=== PATIENT | female | born 1960 | race Caucasian/White ===

== ENCOUNTER 2020-03-15 11:32 | Emergency (ER) | payer OTHER, MEDICARE, SELFPAY ==
[2020-03-15 12:05] VITALS: BP 118/76; PULSE 88; RESP 16; TEMP 36.6; O2SAT 98; BMI 36.5
--- NOTE | 2020-03-15 12:30 | CT_ITS ---
EXAMINATION: CT HEAD WITHOUT CONTRAST CLINICAL INFORMATION: Headache and left ear pain COMPARISON: None TECHNIQUE: Contiguous axial imaging was performed from the skull base to vertex without intravenous administration of contrast. This CT examination was performed using dose optimization techniques as appropriate, variously including the following: *Automated exposure control *Adjustment of mA and/or kV according to patient size (this includes techniques or standardized protocols for targeted exams where dose is matched to indication/reason for exam; i.e. extremities or head) *Use of iterative reconstruction technique DLP: 737 mGy-cm FINDINGS: There is no evidence of acute intracranial hemorrhage or territorial infarction. No abnormal mass effect or midline shift is seen. Katz to white matter differentiation is well preserved. No extra-axial fluid collections are identified. The ventricle sulci and cisterns are mildly prominent for age.. There is no abnormal attenuation within the brain parenchyma. The osseous structures and soft tissues are normal. The mastoid air cells and visualized portions of the paranasal sinuses are well aerated. No CP angle lesion identified. CT/CT head/brain wo con IMPRESSION: No acute intracranial pathology.
--- NOTE | 2020-03-15 12:37 | ED.GENADULT ---
HPI - General Adult General Chief complaint: General Medical Stated complaint: ear/neck/back pain Time Seen by Provider: 03/15/20 12:00 Source: patient Mode of arrival: ambulatory Limitations: no limitations History of Present Illness HPI narrative: 59-year-old female who presents the emergency department for evaluation of left year pain x2 months, neck pain with headache x6 weeks and lower back pain. The patient states that she has a constant, sharp, deep pain in her left ear x2 months. She states that she occasionally has a ringing sensation in both ears. She has not noticed any decreased hearing specifically in her left ear but states that her hearing is decreased in both ears. She states that over the past 6 weeks she has had neck pain, she points to her trapezius muscles bilaterally. She states this pain is a constant, sharp pain which is worse with movement and is moderate to severe in intensity. She states the pain does radiate to the back of her head and she has a constant a septal headache which is moderate to severe in intensity. She states that she did see her PCP for the ear pain and was referred to ENT but has not had an appointment yet does follow-up with ENT. She states she saw her dentist yesterday and did not find a cause for her your pain. She states that she is concerned that the pain is persisting and is still severe therefore she called her PCP and was advised to go to the emergency department for evaluation. She denied fever, chills, chest pain, shortness of breath, nausea, vomiting, myalgias or arthralgias. She denies loss of sense of taste or smell. She denies any dental pain or jaw pain. Related Data Previous Rx's Medication Instructions Recorded cyclobenzaprine 10 mg PO TID PRN 7 Days #21 tab 03/15/20 prednisone 60 mg PO DAILY 7 Days #21 tab 03/15/20 Allergies Allergy/AdvReac Type Severity Reaction Status Date / Time doxycycline Allergy Unknown Verified 09/20/19 00:00 simvastatin Allergy Unknown Verified 09/20/19 00:00 No Known Allergies Allergy Unverified 11/10/19 14:52 Review of Systems Review of Systems: Yes all other systems are reviewed and are negative Neurologic: Reports Abnormal speech present PMFSH Past Medical History Medical History Depression High cholesterol HTN (hypertension) Hypothyroid PTSD (post-traumatic stress disorder) Surgical History History of ankle surgery History of dilatation and curettage Hx Last Menstrual Period: The patient denies tobacco use. She occasionally drinks alcohol, she denie Social History Social History Smoked in Last 30 Days: No Use of substances other than those prescribed or required for medical reasons: No Advance Directives: No Advance Directives Information Provided: Yes Physical Exam Vital Signs: Vital Signs: Last Vital Signs Temp 97.8 F 03/15/20 12:05 Pulse 88 03/15/20 12:05 Resp 16 03/15/20 12:05 BP 118/76 03/15/20 12:05 Pulse Ox 98 03/15/20 12:05 Body Mass Index 36.5 Const: General: cooperative Nutritional Appearance: overweight Orientation/consciousness: oriented to person and oriented to place Limitations: no limitations HENMT: Head: Yes normal to inspection, Yes normocephalic and Yes atraumatic Ears: hearing grossly normal bilaterally, external ears normal, TM's normal bilaterally and other (No TMJ tenderness, no sinus tenderness) General nose exam: Normal external nose present Face and sinus: Yes normal facial exam, Yes face symmetric and No Facial tenderness on exam of face and sinuses Mouth: Normal oral and palatal mucosa present Teeth and gingiva: dentition normal Throat: Yes posterior oropharynx normal Eyes: Periorbital: periorbital findings normal Eyelids: Yes eyelids normal Conjunctivae: conjunctivae normal Sclerae: sclerae normal Corneas: corneas normal Pupils: Equal, round and reactive pupils present Direct Ophthalmoscopy: normal light reflex Neck: Neck: Yes full ROM, Yes no lymphadenopathy, Yes no meningeal signs, Yes trachea midline, Yes supple, No anterior neck swelling and Yes tender (Bilateral trapezius and the occipital muscle) Thyroid: Thyroid normal Chest: Chest palpation & inspection: normal inspection of the chest and normal palpation of entire chest wall Resp: Effort & Inspection: normal respiratory effort and able to speak in complete sentences Auscultation: clear to auscultation bilaterally Cardio: Rate: regular rate Rhythm: regular rhythm Heart sounds: S1 normal heart sound present, S2 normal heart sound present and no murmurs GI: Inspection: Yes normal to inspection Palpation (GI): Soft to palpation, nontender, no guarding, not rigid and No hepatosplenomegaly present : General: Yes no CVA tenderness Back/Spine/Pelvis: Back: no CVA tenderness Cervical Spine: normal cervical lordosis Thoracic/Lumbar Spine: thoracic and lumbar spine normal to inspection and paraspinal muscle tenderness (Lumbar sacral area bilaterally) Skin: Lesions: no lesions Rashes: no rashes Wounds: no wounds Neuro: General: oriented to person, oriented to place and no meningeal signs Cranial nerves: Yes CN's II-XII intact bilaterally and Yes Equal, round and reactive pupils present Cognition (Neuro): normal cognition Speech: Abnormal speech present Motor exam (neuro): 5/5 motor strength present throughout Extrem: General: Yes normal to inspection and Yes full ROM Psych: Appearance: well kempt Mental Status: mental status grossly normal Speech and movement: Normal speech and movement present Affect: normal affect Attitude: cooperative Thought process: Normal thought process present Thought content: Normal thought content present Course Course Course Narrative: 59-year-old female who presents emergency department for evaluation of left ear pain x2 months, neck pain and is typical pain x6 weeks and lower back pain. Physical examination revealed no findings of her left ear jaw or face that explains her left ear pain. She does have significant tenderness with palpation of her trapezius muscles and her muscles of the occiputal scalp. Given her persistent headaches for 1 month, I did order a CT scan of the brain without contrast to rule out the possibility of tumor/mass effect is the cause of her symptoms. 1340: The patient's CT scan of the brain was negative. I did discuss this finding with the patient. The patient will be started empirically on a course of prednisone 60 mg once a day for 1 week to see if this improves her symptoms. She will be referred to our ENT physician for further evaluation Discharge Plan Discharge Clinical Impression: Left ear pain Neck sprain Qualifiers: Encounter type: subsequent encounter Qualified Code(s): S13.9XXD - Sprain of joints and ligaments of unspecified parts of neck, subsequent encounter Headache Qualifiers: Headache type: unspecified Headache chronicity pattern: acute headache Intractability: intractable Qualified Code(s): R51.9 - Headache, unspecified Patient Disposition: Home, Self-Care Additional Instructions: I did not see any significant findings on your examination to explain your left ear pain. You should follow-up with our ENT physician with the physician that you referred to by your doctor for further evaluation of your left ear pain. You did have significant tenderness with palpation of your neck muscles and I believe that your neck pain and headaches are related to muscle pain and spasm of these muscles Take prednisone 60 mg once a day for 1 week. This is a strong anti-inflammatory medication and hopefully this will improve the pain in your neck and in your ear. Take Flexeril (cyclobenzaprine) 10 mg pills, 1 pill 3 times a day for 1 week as needed for pain and spasm of your neck. This medication will make you sleepy. Follow-up with your doctor in 2 days. Please return to the emergency department if your symptoms get worse or if you develop any symptoms that are concerning to you. Prescriptions: New prednisone 20 mg tablet 60 mg PO DAILY 7 Days Qty: 21 RF: 0 cyclobenzaprine 10 mg tablet 10 mg PO TID PRN (Reason: muscle spasm) 7 Days Qty: 21 RF: 0 Referrals: Juan Antonio Encinas [Physician] - 1 week
== END 2020-03-15 14:00 | disposition home or self-care (01) ==
PROVIDERS: Emergency Provider Emergency Medicine Emergency Medical Services; PCP Family Medicine
DX: S13.9XXA Sprain of joints and ligaments of unspecified parts of neck, initial encounter (principal); H92.02 Otalgia, left ear; R51.9 Headache, unspecified; M54.2 Cervicalgia; I10 Essential (primary) hypertension; X58.XXXA Exposure to other specified factors, initial encounter; Y93.9 Activity, unspecified; Y92.9 Unspecified place or not applicable; Y99.9 Unspecified external cause status; Z79.899 Other long term (current) drug therapy
CPT/HCPCS: 70450; 99283; 99284

== ENCOUNTER 2022-02-24 08:39 | Emergency (ER) | payer OTHER, SELFPAY ==
--- NOTE | ~2022-02-24 | XR_ITS ---
EXAMINATION: XR CHEST CLINICAL INFORMATION: Productive cough COMPARISON: None TECHNIQUE: 2 views of the chest were obtained. FINDINGS: No significant abnormality is noted involving the heart, lungs, mediastinum, bony thorax or soft tissues. XR/XR chest 2V IMPRESSION: No acute disease.
[2022-02-24 08:41] VITALS: BP 187/89; PULSE 84; RESP 18; TEMP 36.7; O2SAT 97; BMI 42.3
--- NOTE | 2022-02-24 09:26 | ED_ITS ---
HPI - URI/Sore Throat General Chief Complaint: Upper Respiratory Symptoms Stated Complaint: ear infection Time Seen by Provider: 02/24/22 08:53 Source: patient Mode of arrival: ambulatory Limitations: no limitations History of Present Illness HPI Narrative: Patient is a 61-year-old female who presents to the emergency department with multiple upper respiratory complaints. She reports a cough with nasal congest ion for 1 month. About 1 week ago her symptoms seem to have been improving but then became worse again. Phlegm is yellow /wound. Has left-sided sinus pressure. Yesterday she began noting redness to the left eye off with clear drainage. Additionally she began experiencing right ear pain yesterday. This to go home COVID- 19 test which was negative. She reports that she was seen by her primary care provider 2 weeks ago, was not provided with any prescription medications at that time by her account. She denies fevers, chills, sore throat, chest pain, shortness of breath, difficulty breathing, nausea, vomiting, abdominal pain. Reports she has been vaccinated for COVID - 19 x 4. Related Data Previous Rx's Medication Instructions Recorded cyclobenzaprine 10 mg tablet 10 mg PO TID PRN muscle spasm 7 03/15/20 days #21 tabs prednisone 20 mg tablet 60 mg PO DAILY 7 days #21 tabs 03/15/20 amoxicillin 875 mg-potassium 1 tab PO BID #14 tabs 02/24/22 clavulanate 125 mg tablet Allergies Allergy/AdvReac Type Severity Reaction Status Date / Time doxycycline Allergy Unknown Verified 09/20/19 00:00 simvastatin Allergy Unknown Verified 09/20/19 00:00 No Known Allergies Allergy Unverified 11/10/19 14:52 Review of Systems Review of Systems: Constitutional: No fever. no chills. No weakness. no fatigue. ENT/ Mouth: positive Ear Pain, positive Nasal Congestion, no sore throat, No Rhinorrhea, No Swallowing Difficulty Skin: No rash or itching. Cardiovascular: No chest pain. No palpitations. Respiratory: No shortness of breath. Positive cough. positive sputum production. Gastrointestinal: No nausea. No vomiting. No diarrhea. No abdominal pain. Genitourinary: No burning micturition. No urinary frequency. Neurologic: No headache. No dizziness. No syncope. No numbness or tingling in the extremities. Musculoskeletal: No muscle pain. No back pain. No joint pain or stiffness. Yes all other systems are reviewed and are negative [facility] Past Medical History Attestation statement: The following information was validated with the patient. Source: old records reviewed Medical History Depression High cholesterol HTN (hypertension) Hypothyroid PTSD (post-traumatic stress disorder) Surgical History History of ankle surgery History of dilatation and curettage Social History Social History Alcohol intake: never Smoked in Last 30 Days: No Use of substances other than those prescribed or required for medical reasons: No Advance Directives: No Advance Directives Information Provided: No Physical Exam Vital Signs: Vital Signs: Last Vital Signs Temp 98.1 F 02/24/22 08:41 Pulse 84 02/24/22 08:41 Resp 18 02/24/22 08:41 BP 187/89 H 02/24/22 08:41 Pulse Ox 97 02/24/22 08:41 O2 Del Method 02/24/22 08:41 BMI result Body Mass Index 42.3 Appearance: Alert.?Oriented to person, place and time. No acute distress.?Normal affect. Eyes: Pupils equal, round and reactive to light.? left conjunctival erythema, clear drainage. ENT: TM Normal on the left, right TM erythematous and bulging. Pharynx normal.?? Left maxillary sinus tenderness upon palpation. Neck: Normal inspection.? Neck supple. Full AROM. no nucha rigidity.??No cervical adenopathy CVS: Heart sounds normal. Normal heart rate and rhythm.? Pulses normal.?? Respiratory: No respiratory distress.? Lung sounds clear to auscultation bilaterally?? Abdomen: Soft and non-tender. Normoactive bowel sounds. Skin: Skin warm and dry.? Normal skin color.? ? Extremities: No lower extremity edema.? Neuro: Moves all extremities spontaneously. Sensation intact bilaterally. No motor deficits. Ambulates with normal steady gait. Course Reevaluation(s) Reevaluation #1: COVID-19 testing is negative. Influenza testing Is negative. chest x-ray reveals no acute cardiopulmonary process. At this time history and physical exam not consistent with pneumonia. symptoms most consistent with acute otitis media of the right, and left frontal maxillary sinusitis, will cover with Augmentin for treatment of both. Discussed conservative treatment including rest, hydration, Tylenol/ibuprofen as needed for fever and body aches, saline nasal spray, humidifier. Advised to follow-up with primary care provider as needed, discussed reasons to return back to the emergency department. All questions were answered. Patient discharged home in stable condition. Time: 11:02 Medical Decision Making Medical Decision Making [facility] Narrative: Patient is a 61-year-old female with past medical history of depression, PTSD, hyperlipidemia, hypertension, hypothyroidism, presenting for evaluation of upper respiratory symptoms. Well-appearing, nontoxic, afebrile, no tachycardia or tachypnea/hypoxia. Speaking clear full sentences, ambulatory with steady gait. physical examination concerning for acute otitis media of the right ear, history and physical examination also concerning for sinusitis, given duration of symptoms, appears most consistent with its bacterial nature at this time. However given some resolution in symptoms and then return after exposure to ill contact will obtain COVID- 19 and influenza testing in addition a chest x-ray to exclude pneumonia. Lab Data [facility] Lab Attestation statement: I reviewed the patient's lab results. Labs: Lab Results 02/24/22 02/24/22 Range/Units 09:44 09:44 COVID-19 (NASRA) Negative (Negative) COVID-19 Clin Com See Note Influenza Type A (ANAM) Negative (Negative) Influenza Type B (ANAM) Negative (Negative) Influenza A & B Note See Note Independent Interpretation I performed an independent interpretation of an: Plain X-Ray Interpretation: I personally interpreted chest x-ray and agree with radiologist impression Radiology Impression Discussion of test interpretation with radiology: I have reviewed the radiologist's reading. Radiologist Impression: XR/XR chest 2V IMPRESSION: No acute disease. Prescription Management I considered prescription management with: Antibiotic ( Prescription for Augmentin sent to patient's pharmacy.) Discharge Plan Discharge Clinical Impression: Acute otitis media Qualifiers: Laterality: right Recurrence: non-recurrent Spontaneous tympanic membrane rupture: without spontaneous rupture Sinusitis Qualifiers: Sinusitis location: maxillary Chronicity: acute Recurrence: non-recurrent Qualified Code(s): J01.00 - Acute maxillary sinusitis, unspecified Patient Disposition: Home, Self-Care Instructions: Sinusitis (ED), Ear Infection (ED) Additional Instructions: your chest x-ray today was normal. Testing for COVID- 19 and influenza are negative. A prescription for Augmentin was sent to your pharmacy for the treatment of right ear infection and sinus infection please complete this entire course of antibiotic. Be sure to rest, drink plenty of fluids, use saline nasal spray / humidifier for congestion, Tylenol as needed for pain. Follow-up with your primary care provider for persistent symptoms. Return to the emergency department with any new or worsening symptoms or concerns. Prescriptions: New amoxicillin-pot clavulanate 875-125 mg tablet 1 tab PO BID Qty: 14 0RF No Action prednisone 20 mg tablet 60 mg PO DAILY 7 Days Qty: 21 0RF cyclobenzaprine 10 mg tablet 10 mg PO TID PRN (Reason: muscle spasm) 7 Days Qty: 21 0RF Referrals: Carla Clay MD [Primary Care Provider] - Interventions: ED Discharge Assessment Last Done: 02/24/22 11:31
[2022-02-24 10:09] LABS: COVID-19 Test Negative (Negative); IDNOW Serial# 16C4AD1C
[2022-02-24 10:10] LABS: IDNOW Serial# BCCEAD1C; Influenza A Negative (Negative); Influenza B2 Negative (Negative)
== END 2022-02-24 11:33 | disposition home or self-care (01) ==
PROVIDERS: Nurse Practitioner Family; Emergency Provider Student in an Organized Health Care Education/Training Program; PCP Family Medicine
DX: H66.91 Otitis media, unspecified, right ear (principal); J01.00 Acute maxillary sinusitis, unspecified; Z20.822 Contact with and (suspected) exposure to COVID-19; I10 Essential (primary) hypertension; E78.5 Hyperlipidemia, unspecified
CPT/HCPCS: 71046; 87502; 87635; 99283

== ENCOUNTER 2023-01-19 14:58 | Emergency (ER) | payer OTHER, SELFPAY ==
--- NOTE | ~2023-01-19 | XR_ITS ---
EXAMINATION: XR WRIST, LEFT XR HAND, LEFT CLINICAL INFORMATION: Fall, pain. COMPARISON: None available. TECHNIQUE: 3 views of the left hand and 4 views of the left wrist. FINDINGS: No evidence of acute fractures or subluxation. Mild multifocal degenerative osteoarthritis with joint space narrowing, subcortical sclerosis and small marginal osteophytes. No osseous erosions. No chondrocalcinosis. No unexpected radiopaque foreign bodies. XR/XR hand wrist LT IMPRESSION: 1. No acute fractures or malalignment. 2. Mild multifocal degenerative osteoarthritis.
--- NOTE | 2023-01-19 15:18 | ED_ITS ---
HPI - URI/Sore Throat General Chief Complaint: Extremity Injury, Upper Stated Complaint: possible broken L hand Time Seen by Provider: 01/19/23 17:19 Source: patient Mode of arrival: ambulatory Limitations: no limitations History of Present Illness HPI Narrative: This is a 62-year-old female history of hypertension, hyperlipidemia, diabetes, hypothyroidism, PTSD, depression presenting to the emergency department with left-sided wrist pain status post fall onto an outstretched hand and also hitting the lateral aspect of it yesterday while playing tennis. When she fell she did not hit her head or lose consciousness. Not on anticoagulants. She is ambidextrous. She reports pain that is worse with movement better at rest. Also noted some swelling to the left wrist. No previous injuries to this wrist. Denies fevers, chills, numbness, tingling, headache, vision changes, chest pain, shortness of breath, nausea, vomiting, abdominal pain. Related Data Previous Rx's Medication Instructions Recorded cyclobenzaprine 10 mg tablet 10 mg PO TID PRN muscle spasm 7 03/15/20 days #21 tabs prednisone 20 mg tablet 60 mg (3 x 20 mg) PO DAILY 7 days 03/15/20 #21 tabs amoxicillin 875 mg-potassium 1 tab PO BID #14 tabs 02/24/22 clavulanate 125 mg tablet ketorolac 10 mg tablet 10 mg PO TID PRN pain 5 days #15 01/19/23 tabs Allergies Allergy/AdvReac Type Severity Reaction Status Date / Time doxycycline Allergy Unknown Verified 09/20/19 00:00 simvastatin Allergy Unknown Verified 09/20/19 00:00 No Known Allergies Allergy Unverified 11/10/19 14:52 Review of Systems Review of Systems: Constitutional : No Weight loss, No Fever, No Chills, No Fatigue, No Malaise ENT/Mouth : No sore throat, No Rhinorrhea Eyes: No Eye Pain, No Swelling, No Redness Cardiovascular : No Chest Pain, No SOB, No Dyspnea on Exertion, No Orthopnea, No Edema, No Palpitations Respiratory : No Cough, No Sputum, No Wheezing Gastrointestinal : No Nausea, No Vomiting, No Diarrhea, No Constipation, No abdominal Pain, No Hematochezia, No Melena Genitourinary : No Dysuria, No Urinary Frequency, No Hematuria, Musculoskeletal : + joint pain, No Myalgias, + Joint Swelling Skin : No Skin Lesions, No rash Neuro : No Weakness, No Numbness, No Dizziness, No Headache Psych : No Anxiety/Panic, No Depression All other systems reviewed and are negative Yes all other systems are reviewed and are negative [facility] Past Medical History Attestation statement: The following information was validated with the patient. Source: old records reviewed and nursing notes reviewed Medical History Hypothyroid PTSD (post-traumatic stress disorder) Depression High cholesterol HTN (hypertension) Surgical History History of ankle surgery History of dilatation and curettage Social History Alcohol intake: never Physical Exam Vital Signs: Vital Signs: Last Vital Signs Temp 96.8 F 01/19/23 15:19 Pulse 78 01/19/23 15:19 Resp 18 01/19/23 15:19 BP 146/65 H 01/19/23 15:19 Pulse Ox 99 01/19/23 15:19 O2 Del Method Room Air 01/19/23 15:19 BMI result Body Mass Index 43.9 vss Appearance: Alert.? Oriented X3.? No acute distress.? Head: Normocephalic, atraumatic, no step-offs or deformities Eyes: Pupils equal, round and reactive to light.? CVS:Pulses normal.? Respiratory: No respiratory distress. Abdomen: Soft and nontender.? Skin: Skin warm and dry.? Normal skin color.? Normal skin turgor.? Extremities: No lower extremity edema.? No calf ttp. 5/5 strength to bilateral upper and lower extremities + swelling to the left wrist in slightly uncomfortable range of motion to left wrist however still has full range of motion. Normal sensation distally. 2+ radial pulses equal bilateral. No wrist drop. Capillary refill less than 2 seconds equal bilateral. No discomfort with palpation over anatomical snuffbox. Slight ecchymosis to the dorsal aspect of left hand. Neuro: Oriented X 3.? No motor deficit.? No sensory deficit. CN 2-12 intact Course Course Course Narrative: This is a rapid medical exam. Deferred additional HPI, ROS, PE to primary provider. 62 yo female with history of HTN, HLD, DM, hypothyroidism, PTSD, depression who is ambidextrous here with complaints of left wrist pain after fall while playing tennis yesterday Denies hitting head or LOC. No AC therapy Will obtain x-rays of the wrist/hand VSS Reevaluation(s) Reevaluation #1: X-ray no acute fracture dislocation, mild multifocal degenerative osteoarthritis will place and wrist splint. Educated follow-up with Ortho if needed and may need repeat films to rule out fracture. Educated patient on diagnosis and treatment plan, answered all question, patient verbalizes understanding. At this time patient will be discharged home, advised to return with new or worsening symptoms. Educated on worrisome signs and symptoms and when to return. At this time I feel comfortable discharge home. Time: 17:23 Medical Decision Making Medical Decision Making [facility] Narrative: [id number] 62-year-old female presents with a left hand/wrist pain status post FOOSH/ landing on the lateral aspect of hand unclear Physical exam with swelling to the left wrist in slightly uncomfortable range of motion to left wrist however still has full range of motion. Normal sensation distally. 2+ radial pulses equal bilateral. No wrist drop. Capillary refill less than 2 seconds equal bilateral. No discomfort with palpation over anatomical snuffbox Slight ecchymosis to the dorsal aspect of left hand. History and physical exam concerning for possible fracture/dislocation versus sprain or strain. No signs of neurovascular compromise or threat to [place]. Plan imaging Differential Diagnosis Differential Diagnoses: The differential diagnosis associated with the presentation includes History and physical exam concerning for possible fracture/dislocation versus sprain or strain. No signs of neurovascular compromise or threat to [place]. Admission/Observation Consideration of admission/observation: Escalation of care including admission/observation considered Unlikely Independent Interpretation I performed an independent interpretation of an: Plain X-Ray (XR/XR hand wrist LT IMPRESSION: 1. No acute fractures or malalignment. 2. Mild multifocal degenerative osteoarthritis. ) Radiology Impression Discussion of test interpretation with radiology: I have reviewed the radiologist's reading. Prescription Management I considered prescription management with: Pain Medication Discharge Plan Discharge Clinical Impression: Sprain and strain of wrist Patient Disposition: Home, Self-Care Instructions: Sprain (ED), R.I.C.E. Treatment (ED), Wrist Sprain (ED) Additional Instructions: Take your medications as prescribed. If you were prescribed antibiotics today, it is important that you take your medication to their entirety, do not skip any doses, do not finish them early. Follow-up with your primary care provider this week. Return to the emergency department with new or worsening symptoms. Such as fevers, chills, chest pain, shortness of breath, nausea, vomiting, dizziness, headache, vision changes, lethargy In case of emergency call 911 Follow-up with the orthopedic team. If pain persists you may require repeat films. Toradol has been sent to your pharmacy, you tolerated this well in the department. Please take this as prescribed do not take this with ibuprofen, or other NSAIDs, do not mix this with alcohol. Side effects of this medication including increased risk for bleeding and possible kidney injury. XR/XR hand wrist LT IMPRESSION: 1. No acute fractures or malalignment. 2. Mild multifocal degenerative osteoarthritis. Prescriptions: New ketorolac 10 mg tablet 10 mg PO TID PRN (Reason: pain) 5 Days Qty: 15 0RF No Action prednisone 20 mg tablet 60 mg PO DAILY 7 Days Qty: 21 0RF cyclobenzaprine 10 mg tablet 10 mg PO TID PRN (Reason: muscle spasm) 7 Days Qty: 21 0RF amoxicillin-pot clavulanate 875-125 mg tablet 1 tab PO BID Qty: 14 0RF Referrals: [facility] [Provider Group] - 2 days Stand Alone Forms: Work/School Release
[2023-01-19 15:19] VITALS: BP 146/65; PULSE 78; RESP 18; TEMP 36; O2SAT 99; BMI 43.9
[2023-01-19] MEDS: Ketorolac Tromethamine 30 MG/ML VIAL IM (17:40)
== END 2023-01-19 18:52 | disposition home or self-care (01) ==
LOC: HO.ED 18:49
PROVIDERS: Emergency Provider Emergency Medicine
DX: S63.502A Unspecified sprain of left wrist, initial encounter (principal); S66.912A Strain of unspecified muscle, fascia and tendon at wrist and hand level, left hand, initial encounter; X50.1XXA Overexertion from prolonged static or awkward postures, initial encounter; E78.5 Hyperlipidemia, unspecified; I10 Essential (primary) hypertension; Y93.73 Activity, racquet and hand sports; Y92.312 Tennis court as the place of occurrence of the external cause; Y99.9 Unspecified external cause status
CPT/HCPCS: 73110; 73130; 96372; 99283; 99284; J1885

== ENCOUNTER 2023-04-03 08:24 | Outpatient (REF) | payer MEDICARE, SELFPAY ==
[2023-04-03 12:47] LABS: Estimated Average Glucose 154 mg/dL; Glucose Random 181 mg/dL (60-115)
== END 2023-04-03 08:25 | disposition home or self-care (01) ==
LOC: HO.LAB 08:24
PROVIDERS: Visit Provider Physician Assistant Surgical
DX: E66.01 Morbid (severe) obesity due to excess calories (principal); E11.9 Type 2 diabetes mellitus without complications; F32.A Depression, unspecified; F43.10 Post-traumatic stress disorder, unspecified; Z79.84 Long term (current) use of oral hypoglycemic drugs; Z79.899 Other long term (current) drug therapy
CPT/HCPCS: 36415; 82947; 83036; 99453

== ENCOUNTER 2023-04-03 11:52 | Outpatient (AMB) | payer OTHER, SELFPAY ==
--- NOTE | 2023-04-03 12:42 | HO.OFFWMMET ---
Intake VS Expanded 04/03/23 12:54 BP 120/71 Blood Pressure Location Rt brachial Blood Pressure Position Sitting Pulse 85 Pulse Source Pulse Oximeter Temp 97.6 F Temperature Source Temporal Artery Scan Pulse Oximetry 98 Oxygen Delivery Method Room Air Height 5 ft 7 in Weight 259 lb 9.6 oz BMI 40.7 Body Fat % 47.6 Body Fat Mass 123.4 Fat Free Mass 136.0 Visceral Fat Rating 16.0 Body Water % 37.1 Body Water Mass 96.4 Muscle Mass/Score 129.2 Intake Visit Reasons: metabolic clinic Hearing Stenographer Required: No Allergies doxycycline Allergy (Unknown, Verified 09/20/19 00:00) simvastatin Allergy (Unknown, Verified 09/20/19 00:00) No Known Allergies Allergy (Unverified 11/10/19 14:52) Medication List - Last Reconciled 04/03/23 by KEL Munoz amoxicillin-pot clavulanate 875-125 mg 1 tab PO BID levothyroxine (Synthroid) 88 mcg PO DAILY lisinopril 20 mg PO DAILY metformin 500 mg PO BID modafinil 300 mg PO DAILY semaglutide (Ozempic) 0.25 mg subcut QWEEK HPI HPI Comments History of Present Illness Details Patient is a pleasant 62-year-old female who presents to the office for the metabolic clinic. She has been concerned about her weight for many years, recently diagnosed with diabetes and started on metformin 500 mg twice daily. Contributing factors to her obesity include depression with PTSD. She is hoping to lose weight, improve dietary habits, improve mobility and exercise tolerance. She does have a glucometer at home. [facility] Medical History Hypothyroid PTSD (post-traumatic stress disorder) Depression High cholesterol HTN (hypertension) Surgical History History of ankle surgery History of dilatation and curettage Social History Alcohol intake: current Alcohol intake frequency: holidays/special occasions only Alcohol type: wine Patient Tobacco Use Status: Never used Tobacco Review of Systems Const All systems reviewed & are unremarkable except as noted in HPI and below Physical Exam Vital Signs: Last Vital Signs Temp 97.6 F 04/03/23 12:54 Pulse 85 04/03/23 12:54 BP 120/71 04/03/23 12:54 Pulse Ox 98 04/03/23 12:54 Oxygen Delivery Method Room Air 04/03/23 12:54 BMI result Body Mass Index 40.7 Assessment & Plan Assessment & Plan (1) Morbid obesity: Code(s): E66.01 - Morbid (severe) obesity due to excess calories Plan: Patient has been seen in the metabolic clinic. She has been given a meal plan although she states that she has some protein powder at home but was unable to remember what it was. She has an unusual sleep-wake cycle, going to bed around midnight and awakening around noon. Meal plan: Celebrate rebuild 2 scoops in 20 oz of almond milk, 13:00 to 15:00 9 forks of protein and 9 forks of salad or vegetables at 16:00 to 18:00 Celebrate protein bar 20:00 14:10. Attempt to drink 64 oz of water. She was also given an exercise plan. She has a treadmill and elliptical at home as well as an E bike which she enjoys. She additionally enjoys tennis. Hemoglobin A1c 7. Orders: Orders Hemoglobin A1c Today E66.9 - Obesity, unspecified Glucose Random Today E66.9 - Obesity, unspecified Coding Level of Care Code 115[address] [facility] Intital [facility], [facility] Diagnoses Morbid obesity E66.01
[2023-04-03 12:54] VITALS: BP 120/71; PULSE 85; TEMP 36.4; O2SAT 98; BMI 40.7
== END 2023-04-03 14:39 | disposition home or self-care (01) ==
LOC: HO.META 11:52
PROVIDERS: Visit Provider Physician Assistant Surgical
DX: E66.01 Morbid (severe) obesity due to excess calories (principal)

== ENCOUNTER → 2023-04-10 12:03 | Outpatient (BNVA) | payer MEDICARE, SELFPAY | PROVIDERS: Visit Provider Physician Assistant Surgical ==

== ENCOUNTER 2023-05-01 14:32 | Outpatient (AMB) | payer MEDICARE, SELFPAY ==
[2023-05-01 13:43] VITALS: BMI 40.0
--- NOTE | 2023-05-01 13:43 | A.OFFVIS_ITS ---
Intake VS Expanded 05/01/23 13:43 Height 5 ft 7 in Weight 255 lb 8 oz BMI 40.0 Body Fat % 54.2 Intake Visit Reasons: (tV) METABOLIC F/U Allergies doxycycline Allergy (Unknown, Verified 04/10/23 12:05) Unknown simvastatin Allergy (Unknown, Verified 04/10/23 12:05) Unknown No Known Allergies Allergy (Verified 04/10/23 12:05) HPI HPI Comments History of Present Illness Details 62-year-old female returns to the [facility]. She reports her weight today of 255.8 with a BMI of 40. She states that things are going ok. She is not following the meal plans. She feels as though it is too hard. She states she is sleeping too much. She continues with increased depressive symptoms and she discussed this with her therapist to possibly try Ketamine. She was also recommended to try to follow a sleep schedule but has trouble falling asleep, taking 15 mg melatonin. getting into bed at 2 am, taking melatonin at 230 am. waking up at noon but not getting out of bed until 4 pm meal plan: equate isolate, 1 scoop in 10 oz of unsweetened almond milk at 1-3pm, meal at 4pm with 9 forks of protein and 9 of salad or vegetables, celebrate bar at 8pm. . Drinking 80 oz fluids exercise: tennis 1 x per week. nothing else. [facility] Medical History Hypothyroid PTSD (post-traumatic stress disorder) Depression High cholesterol HTN (hypertension) Surgical History History of ankle surgery History of dilatation and curettage Social History Alcohol intake: current Alcohol intake frequency: holidays/special occasions only Alcohol type: wine Patient Tobacco Use Status: Never used Tobacco Assessment & Plan Assessment & Plan (1) Morbid obesity: Code(s): E66.01 - Morbid (severe) obesity due to excess calories Plan: Patient has significant depression is prohibiting her from engaging in the meal plan or exercise plan. She states that she will frequently stay in bed until 4 in the afternoon. She states that she is going to discuss the significant negative impact of her depression on her life overall with her behavioral health specialist whom she says she has an appointment with on Thursday. I will text her weekly to see how she is doing and once her depressive symptoms improve, we will continue to engage and change her meal plan as she loses weight. She is in agreement with this plan. Telehealth Telehealth Location of provider rendering services: practice address Location of patient: address on file Patient Identification confirmed using: Name, : Yes Telehealth method: voice only Patient verbally consented to treatment: Yes Patient verbally consented to billing insurance company: Yes Patient informed of any privacy concerns related to visit: Yes Minutes spent on Phone/Video with Pt.: 20 Coding Level of Care Code 04324 RPM rcrd/trans ea 30 d Diagnoses Morbid obesity E66.01
== END 2023-05-01 14:34 | disposition home or self-care (01) ==
LOC: HO.META 14:33
PROVIDERS: Visit Provider Physician Assistant Surgical
DX: E66.01 Morbid (severe) obesity due to excess calories (principal)

== ENCOUNTER → 2023-05-01 14:32 | Outpatient (BNVA) | payer MEDICARE, SELFPAY | PROVIDERS: Visit Provider Physician Assistant Surgical | DX: E66.01 Morbid (severe) obesity due to excess calories (principal); Z68.41 Body mass index [BMI] 40.0-44.9, adult | CPT/HCPCS: 99454 ==

== ENCOUNTER 2023-11-23 07:33 | Emergency (ER) | payer OTHER, SELFPAY ==
--- NOTE | ~2023-11-23 | CT_ITS ---
EXAMINATION: CT HEAD WITHOUT CONTRAST CLINICAL INFORMATION: Syncope, mechanical fall with head injury COMPARISON: CT scan of brain on 03/15/2020 TECHNIQUE: Contiguous axial imaging was performed from the skull base to vertex without intravenous administration of contrast. This CT examination was performed using dose optimization techniques as appropriate, variously including the following: *Automated exposure control *Adjustment of mA and/or kV according to patient size (this includes techniques or standardized protocols for targeted exams where dose is matched to indication/reason for exam; i.e. extremities or head) *Use of iterative reconstruction technique DLP: 746.14 mGy-cm FINDINGS: Ventricles, sulci and cisterns are dilated, with mild disproportional ventriculomegaly. The right lower frontal parafalcine densely calcified mass lesion is seen measuring 1.0 cm in AP diameter, 0.7 cm in width, 1.5 cm in vertical height (previously 0.8 x 0.7 cm). A rounded focal high attenuation is seen at the medial border of left upper lateral frontal gyrus measuring 0.3 cm in diameter, associated with linear high attenuation in the rest of the frontal gyrus, series 3 image #53, series 9 image #101, series 14 image #40. There is no midline shift. Katz and white matter differentiation is normal. Bone window images show no evidence of skull fracture. CT/CT head/brain wo IV con IMPRESSION: 1. Findings are compatible with tiny focal and linear acute subarachnoid hemorrhage at the left upper lateral frontal gyrus. 2. Unchanged Mild cerebral atrophy with mild disproportional ventriculomegaly. 3. Unchanged Right lower frontal parafalcine densely calcified mass lesion, likely a meningioma. 4. This critical result was discussed with Dr. Royal Ceballos on 11/23/2023 at 947 hours and it was ascertained that the content and urgency of this report was understood at the time of direct communication. Electronically signed by: Kiya Thomson MD 11/23/2023 09:48 AM EDT
--- NOTE | ~2023-11-23 | CT_ITS ---
EXAMINATION: CT ABDOMEN AND PELVIS WITHOUT CONTRAST CLINICAL INFORMATION: Abdominal pain. Rule out colitis. COMPARISON: None available. TECHNIQUE: Multidetector volumetric imaging was performed from the superior aspect of the liver through the pubic symphysis. Sagittal and coronal reformatted images were obtained on the technologist's workstation. This CT examination was performed using dose optimization techniques as appropriate, variously including the following: *Automated exposure control *Adjustment of mA and/or kV according to patient size (this includes techniques or standardized protocols for targeted exams where dose is matched to indication/reason for exam; i.e. extremities or head) *Use of iterative reconstruction technique DLP: 890 mGy-cm FINDINGS: LUNG BASES: The lung bases appear clear, with no evidence of inflammation or nodules. LIVER, GALLBLADDER, AND BILIARY TREE: The liver appears unremarkable in size, shape, and attenuation. No focal hepatic lesion or biliary ductal dilatation is appreciated. Innumerable, layering, approximately 1.4 cm or less gallstones. No evidence of gallbladder wall thickening or pericholecystic inflammatory change. PANCREAS: Unremarkable SPLEEN: Unremarkable ADRENAL GLANDS: Unremarkable KIDNEYS AND URETERS: The kidneys appear unremarkable in size, shape, and attenuation. No hydronephrosis, hydroureter, or calculi seen. BLADDER: Unremarkable GASTROINTESTINAL TRACT/PERITONEAL CAVITY: Long segment, concentric thickening involving the ascending colon, hepatic flexure, and proximal transverse colon, with induration of adjacent fat. Small amount of free intraperitoneal fluid. No evidence of abscess or pneumoperitoneum. Unremarkable appearance of the distal ileum. No evidence of appendicitis. ABDOMINAL WALL: No significant hernia is appreciated. LYMPH NODES: No evidence of adenopathy by size criteria. VASCULAR: Unremarkable PELVIC VISCERA: Unremarkable. OSSEOUS STRUCTURES: Degenerative changes at L4-S1. Status post right hip arthroplasty. CT/CT abdomen pelvis wo IV con IMPRESSION: Long segment, concentric thickening involving the ascending colon, hepatic flexure, and proximal transverse colon, with induration of adjacent fat. Differential diagnosis includes, but is not limited to, colitis. Electronically signed by: Arley Montoya MD 11/23/2023 09:36 AM EDT
[2023-11-23 07:43] VITALS: BP 110/65; BP 118/72; PULSE 100; PULSE 84; RESP 20; TEMP 37.2; O2SAT 95; O2SAT 97; BMI 38.4
[2023-11-23] MEDS: 0.9 % Sodium Chloride 1,000 ML 999 ML IV (07:57)
--- NOTE | 2023-11-23 07:57 | ED.GENADULT ---
HPI - General Adult General Chief complaint: General Medical Stated complaint: ABD PAIN,WEAK,NAUSEA X2D S/P RETURN FROM [place] Time Seen by Provider: 11/23/23 07:51 Source: patient and EMS Mode of arrival: EMS Limitations: no limitations History of Present Illness ED Provider: DR. Ceballos HPI narrative: 63-year-old female came in by ambulance for persistent diarrhea for 2 days described as constant nonbloody watery diarrhea, patient just returned from [place] trip, no sick contacts, patient also recently used amoxicillin for tooth infection finish the course 3 days ago, patient been having a constant diarrhea feeling weak and dizzy, had sustained mechanical falls because of weakness causing head injury this morning. Had a fever yesterday of 102. No CP, no SOB. this morning patient was feeling lightheadedness and dizziness as a result patient fell in the bathroom hit her head complaining of mild headache. Patient declined using any anticoagulation at home. Related Data Home Medications ?Medication ?Instructions ?Recorded ?Confirmed levothyroxine 88 mcg tablet 88 mcg PO DAILY 04/03/23 04/17/23 (Synthroid) lisinopril 20 mg tablet 20 mg PO DAILY 04/03/23 04/17/23 metformin 500 mg tablet 500 mg PO BID 04/03/23 04/17/23 modafinil 200 mg tablet 300 mg PO DAILY 04/03/23 04/17/23 semaglutide 0.25 mg or 0.5 mg (2 0.25 mg subcut QWEEK 04/03/23 04/17/23 mg/3 mL) subcutaneous pen injector (Ozempic) bupropion HCl 150 mg 24 hr tablet, 150 mg PO QAM 04/17/23 04/17/23 extended release (Wellbutrin XL) duloxetine 60 mg capsule,delayed 60 mg PO BID 04/17/23 04/17/23 release (Cymbalta) Previous Rx's ?Medication ?Instructions ?Recorded amoxicillin 875 mg-potassium 1 tab PO BID #14 tabs 02/24/22 clavulanate 125 mg tablet Allergies Allergy/AdvReac Type Severity Reaction Status Date / Time doxycycline Allergy Unknown Unknown Verified 11/23/23 07:48 simvastatin Allergy Unknown Unknown Verified 11/23/23 07:48 No Known Allergies Allergy Verified 11/23/23 07:48 Review of Systems Review of Systems: all other systems are reviewed and are negative Constitutional: Reports as per HPI and Reports no additional constitutional complaints Eyes: Reports as per HPI and Reports no additional eye complaints Reports system reviewed and no additional complaints, except as documented Cardiovascular: Reports as per HPI and Reports no additional cardiovascular complaints Respiratory: Reports as per HPI and Reports no additional respiratory complaints Gastrointestinal: Reports as per HPI and Reports no additional gastrointestinal complaints Genitourinary: Reports no additional female genitourinary complaints Musculoskeletal: Reports no additional musculoskeletal complaints Skin/Breast: Reports system reviewed and no additional complaints, except as docu Psychiatric: Reports no additional psychiatric complaints Endocrine: Reports no additional endocrine complaints Hematologic/Lymphatic: Reports no additional hematologic/lymphatic complaints Allergic/Immunologic: Reports no additional allergic/immunologic complaints Reports system reviewed and no additional complaints, except as documented and Reports Abnormal speech present [facility] Past Medical History Medical History Hypothyroid PTSD (post-traumatic stress disorder) Depression High cholesterol HTN (hypertension) Surgical History History of ankle surgery History of dilatation and curettage Social History Social History Alcohol intake: current Alcohol intake frequency: holidays/special occasions only Alcohol type: wine Patient Tobacco Use Status: Never used Tobacco Advance Directives: No Advance Directives Information Provided: Yes Do you have a plan to hurt others: No Plan Physical Exam ED Vital Signs: Vital Signs - 24 hr 11/23/23 07:43 11/23/23 09:14 11/23/23 09:14 Temperature 99.0 F Pulse Rate 100 92 96 Respiratory Rate 20 Blood Pressure 110/65 130/67 104/59 L Pulse Oximetry 97 Oxygen Delivery Method Room Air 11/23/23 09:15 Temperature Pulse Rate 100 Respiratory Rate Blood Pressure 110/62 Pulse Oximetry Oxygen Delivery Method BMI result Body Mass Index 38.4 Vital signs have been reviewed and appear to be correct. Blood pressure elevated. Heart rate normal. Respiratory rate normal. Temperature normal. Oxygen saturation normal. Appearance: Alert. Oriented X3. No acute distress. Head: Normal external exam. Normocephalic. Atraumatic. No [place] signs noted. No raccoon eyes noted Eyes: PERRLA. EOMI. Conjunctiva and sclera normal. Eyelids normal. ENT: TM's Normal. Pharynx normal. Uvula midline. Moist mucous membranes. No trismus noted. No drooling noted. No muffled voice noted. Neck: Normal inspection. Neck supple. FROM. No adenopathy. Thyroid Normal. No meningeal signs. No neck mass noted. CVS: Normal heart rate and rhythm. Heart sound normal. No murmurs noted. Pulses normal throughout. Respiratory: No respiratory distress. Painless inspiration. Breath sounds normal. No wheezes/rales/rhonchi noted. Chest nontender. No accessory muscle usage noted or decreased air movement noted. Abdomen: Soft and nontender. Bowel sounds normal in all 4 quadrants. No distention noted. No organomegaly noted. No visible injury noted. Back: No CVA tenderness. Full range of motion noted. Skin: Skin warm and dry. Normal skin color. Normal skin turgor. No rashes/lesions/lacerations noted. Extremities: No lower extremity edema. Extremities exhibit normal range of motion. Extremities nontender. Neuro: Oriented X 3. Cranial nerve exam: II-XII are grossly intact No motor deficit. No sensory deficit. Reflexes normal. Course Reevaluation(s) Reevaluation #1: 63-year-old female suspected C diff colitis received vancomycin p.o., sustained a fall likely secondary to a syncopal orthostatic hypotension caused head injury, CT of the head is consistent with small left frontal subarachnoid hemorrhage case discussed with the trauma team at [facility] Dr. Zeng who accepted the patient to the ED for further trauma evaluation. Cervical spine is immobilized by a collar patient will get fully evaluated at [facility]. Time: 10:27 Medications Administered Discontinued Medications Generic Name Dose Route Start Last Admin Trade Name Freq PRN Reason Stop Dose Admin Sodium Chloride 1,000 mls @ 999 mls/hr 11/23/23 07:49 11/23/23 07:57 Ns IV 11/23/23 08:49 999 mls/hr .Q1H1M ONE Administration Loperamide HCl 2 mg 11/23/23 07:52 11/23/23 08:01 Loperamide Hcl 2 Mg Capsule PO 11/23/23 07:53 2 mg ONCE ONE Administration Vancomycin HCl 250 mg 11/23/23 07:50 11/23/23 08:01 Vancomycin Hcl 125 Mg Capsule PO 11/23/23 07:51 250 mg ONCE ONE Administration Medical Decision Making Differential Diagnosis Differential Diagnoses: The differential diagnosis associated with the presentation includes ( C diff colitis, infectious colitis, dehydration, syncopal fall, intracranial hemorrhage, severe anemia, upper respiratory viral infection.) Admission/Observation Consideration of admission/observation: Escalation of care including admission/observation considered Consult Healthcare Provider Management of the patient was discussed with: Customer Sales Advisor ( from Trauma team in [facility].) Lab Data MDM Lab Attestation statement: I reviewed the patient's lab results. 11/23/23 07:56 11/23/23 07:56 Labs: Lab Results 11/23/23 Range/Units 07:56 WBC 18.6 H (4.8-10.8) X10*3/uL RBC 4.79 (4.20-5.50) X10*6/uL Hgb 13.6 (12.0-16.0) g/dl Hct 41.6 (37.0-47.0) % MCV 86.8 (80.0-98.0) fL MCH 28.4 (27.0-33.0) pg MCHC 32.7 (31.0-35.0) g/dl RDW 13.2 (11.0-16.0) % Plt Count 163 (160-400) X10*3/uL MPV 11.0 (9.4-12.3) fL Immature Gran % (Auto) 0.4 (0.0-0.4) % Neut % (Auto) 88.1 H (45-73) % Lymph % (Auto) 4.8 L (20-40) % [place] % (Auto) 6.1 (2-11) % Eos % (Auto) 0.2 (0-4) % Baso % (Auto) 0.4 (0-2) % Lymph # (Auto) 0.9 L (1.2-4.9) X10*3/uL [place] # (Auto) 1.1 (0.1-1.2) X10*3/uL Eos # (Auto) 0.0 (0.0-0.4) X10*3/uL Baso # (Auto) 0.1 (0.0-0.2) X10*3/uL Abs Immat Gran (auto) 0.08 H (0.00-0.03) X10*3/uL Absolute Neuts (auto) 16.3 H (2.0-8.3) x10*3/uL Absolute Nucleated RBC 0.000 (0.0-0.012) X10*3/uL Nucleated RBC % (auto) 0.0 (0.0-0.2) /100WBC Sodium 137 (135-145) mmol/L Potassium 4.2 (3.3-5.1) mmol/L Chloride 102 (96-108) mmol/L Carbon Dioxide 26 (22-29) mmol/L Anion Gap 13 (12-20) BUN 14 (9-16) mg/dL Creatinine 1.09 (0.5-1.4) mg/dL Estim Creat Clear Calc 66.1 Estimated GFR 50 Random Glucose 180 H (60-115) mg/dL Calcium 9.8 (8.4-10.2) mg/dL Total Bilirubin 0.4 (0.0-1.0) mg/dL Direct Bilirubin 0.2 (0.0-0.5) mg/dL AST 39 H (5-31) U/L ALT 37 H (0-31) U/L Alkaline Phosphatase 75 (39-117) U/L Total Protein 7.0 (6.5-8.0) g/dL Albumin 4.0 (3.5-5.0) g/dL Lipase 27 (8-78) U/L Independent Interpretation I performed an independent interpretation of an: CT Scan ( head/abdomen /pelvis:. Findings are compatible with tiny focal and linear acute subarachnoid hemorrhage at the left upper lateral frontal gyrus. 2. Unchanged Mild cerebral atrophy with mild disproportional ventriculomegaly. 3. Unchanged Right lower frontal parafalcine densely calcified mass, ) Radiology Impression Discussion of test interpretation with radiology: I have reviewed the radiologist's reading. Critical Care Time Critical Care Time Critical Care Time: Yes Total Critical Care Time: 60 Attestation: The patient was critically ill with a high probability of imminent or life-threatening deterioration. I spent greater than 30 minutes of discontinuous time evaluating the patient, delivering critical care at the bedside, discussing evaluating data with consultants. Critical care time does not include time spent performing separately billable procedures or teaching. Time spent performing critical care was 60 minutes. Discharge Plan Discharge Clinical Impression: Acute dehydration, Syncope due to orthostatic hypotension, Traumatic subarachnoid hemorrhage Patient Disposition: [facility] Transfer Details: [facility] ER Prescriptions: No Action amoxicillin-pot clavulanate 875-125 mg tablet 1 tab PO BID Qty: 14 0RF lisinopril 20 mg tablet 20 mg PO DAILY metformin 500 mg tablet 500 mg PO BID levothyroxine [Synthroid] 88 mcg tablet 88 mcg PO DAILY Ozempic 0.25 mg or 0.5 mg (2 mg/3 mL) pen injector 0.25 mg subcut QWEEK Rx Instructions: for 4 weeks modafinil 200 mg tablet 300 mg PO DAILY duloxetine [Cymbalta] 60 mg capsule,delayed release(DR/EC) 60 mg PO BID bupropion HCl [Wellbutrin XL] 150 mg tablet extended release 24 hr 150 mg PO QAM Print Language: Finnish
[2023-11-23 08:01] LABS: MANUAL DIFF FLAG NO
[2023-11-23] MEDS: Loperamide HCl 2 MG CAPSULE PO (08:01)
[2023-11-23] MEDS: vancomycin HCL 125 MG CAPSULE 250 MG PO (08:01)
[2023-11-23 08:03] LABS: Basophils Absolute Auto 0.1 X10*3/uL (0.0-0.2); Basophils Percent Auto 0.4 % (0-2); Eosinophils Percent Auto 0.2 % (0-4); Hematocrit 41.6 % (37.0-47.0); Hemoglobin 13.6 g/dl (12.0-16.0); Imm Gran Abs Auto 0.08 X10*3/uL (0.00-0.03); Imm Gran Pct Auto 0.4 % (0.0-0.4); Lymphocytes Absolute Auto 0.9 X10*3/uL (1.2-4.9); Lymphocytes Percent Auto 4.8 % (20-40); Mean Corpuscular HGB Conc 32.7 g/dl (31.0-35.0); Mean Corpuscular Hemoglobin 28.4 pg (27.0-33.0); Mean Corpuscular Volume 86.8 fL (80.0-98.0); Monocytes Absolute Auto 1.1 X10*3/uL (0.1-1.2); Monocytes Percent Auto 6.1 % (2-11); Neutrophils Absolute Auto 16.3 x10*3/uL (2.0-8.3); Neutrophils Percent Auto 88.1 % (45-73); Platelet Count 163 X10*3/uL (160-400); Red Blood Count 4.79 X10*6/uL (4.20-5.50); Red Cell Distribution Width 13.2 % (11.0-16.0); White Blood Count 18.6 X10*3/uL (4.8-10.8)
[2023-11-23 08:22] LABS: Alanine Aminotransferase 37 U/L (0-31); Alkaline Phosphatase 75 U/L (39-117); Anion Gap 13 (12-20); Aspartate Amino Transferase 39 U/L (5-31); Bilirubin Direct 0.2 mg/dL (0.0-0.5); Bilirubin Total 0.4 mg/dL (0.0-1.0); Blood Urea Nitrogen 14 mg/dL (9-16); Calcium 9.8 mg/dL (8.4-10.2); Carbon Dioxide 26 mmol/L (22-29); Chloride 102 mmol/L (96-108); Creatinine Clr Calc Pharmacy 66.1; Estimated Glomerular Filt Rate 50; Glucose Random 180 mg/dL (60-115); Lipase 27 U/L (8-78); Potassium 4.2 mmol/L (3.3-5.1); Sodium 137 mmol/L (135-145)
[2023-11-23 09:14] VITALS: BP 104/59; BP 130/67; PULSE 92; PULSE 96
[2023-11-23 09:15] VITALS: BP 110/62; PULSE 100
[2023-11-23 11:10] VITALS: BP 116/64; PULSE 93; RESP 20; TEMP 36.6; O2SAT 95
[2023-11-23 11:50] VITALS: BP 116/64; PULSE 93; RESP 18; TEMP 36.6; O2SAT 95
== END 2023-11-23 11:52 | disposition short-term general hospital (02) ==
PROVIDERS: Emergency Provider Emergency Medicine; PCP Internal Medicine
DX: S06.6X0A Traumatic subarachnoid hemorrhage without loss of consciousness, initial encounter (principal); W18.30XA Fall on same level, unspecified, initial encounter; R55 Syncope and collapse; I95.1 Orthostatic hypotension; E86.0 Dehydration; R19.7 Diarrhea, unspecified; R50.9 Fever, unspecified; I10 Essential (primary) hypertension; E78.00 Pure hypercholesterolemia, unspecified; E03.9 Hypothyroidism, unspecified; Y93.9 Activity, unspecified; Y92.012 Bathroom of single-family (private) house as the place of occurrence of the external cause; Y99.9 Unspecified external cause status; Z79.899 Other long term (current) drug therapy
CPT/HCPCS: 36415; 70450; 74176; 80048; 80076; 83690; 85025; 96360; 96361; 99284; 99285

== ENCOUNTER 2024-10-24 04:30 | Inpatient (IN) | payer MEDICARE, SELFPAY ==
[2024-10-24] VITALS (7 sets, daily range): BP systolic 112–149; BP diastolic 57–93; PULSE 80–97; RESP 15–23; TEMP 36.1–36.8; O2SAT 93–98; BMI 40.6; BMI 39.2
--- NOTE | 2024-10-24 | ECG_ITS ---
Test Reason : NAUSEA Blood Pressure : */* mmHG Vent. Rate : 89 BPM Atrial Rate : 89 BPM P-R Int : 146 ms QRS Dur : 84 ms QT Int : 360 ms P-R-T Axes : 51 41 31 degrees QTcB Int : 438 ms Normal sinus rhythm Normal ECG No previous ECGs available Referred By: Generic ED Physician Electronically Signed By: JANELLE SAHA MD
--- NOTE | ~2024-10-24 | CT_ITS ---
CLINICAL HISTORY: LLQ abdominal pain Exam: CT abdomen and pelvis with IV contrast Comparison: CT - CT ABDOMEN PELVIS W IV CON - 10/24/24 06:32 EDT Findings: Unremarkable lung bases. Distended stomach, multiple dilated small bowel with gradual caliber tapering to nearly decompressed terminal ileum, liquid stool throughout large bowel, proximal colon is prominent in caliber but not dilated, distal colon is underdistended but not completely decompressed, no small or large bowel wall thickening, no pneumatosis or pneumoperitoneum, bowel wall enhancement appears preserved. Appendix is normal in caliber, appendicoliths is present, no periappendiceal inflammation. Liver, spleen, pancreas, adrenal glands, kidneys are unremarkable. Too small to characterize hypodensities of the right kidney unchanged. Cholelithiasis without acute inflammation, no bile duct dilatation. Bladder is nearly empty, limiting evaluation, no calculus. Reproductive organs are unremarkable for the age. Minimal atherosclerotic disease. No lymphadenopathy. No ascites. Degenerative changes of the lumbar spine. Right hip arthroplasty, no acute hardware complication. Impression: 1. High-grade partial small bowel obstruction with gradual small-bowel caliber tapering distally to the terminal ileum. Liquid stool throughout colon. Recommend NG tube decompression and surgical consultation. 2. Cholelithiasis without acute inflammation. 3. Appendicoliths without acute appendicitis. 4. Additional ancillary findings. This document has been electronically signed by: Hawa Kendrick MD on 10/24/2024 08:13:39
[2024-10-24 04:54] LABS: Hematocrit 39.8 % (37.0-47.0); Hemoglobin 12.6 g/dl (12.0-16.0); Imm Gran Abs Auto 0.06 X10*3/uL (0.00-0.03); Imm Gran Pct Auto 0.5 % (0.0-0.4); Lymphocytes Absolute Auto 1.7 X10*3/uL (1.2-4.9); MANUAL DIFF FLAG NO; Mean Corpuscular HGB Conc 31.7 g/dl (31.0-35.0); Mean Corpuscular Hemoglobin 26.6 pg (27.0-33.0); Mean Corpuscular Volume 84.1 fL (80.0-98.0); NRBC Abs Auto 0.000 X10*3/uL (0.0-0.012); NRBC Pct Auto 0.0 /100WBC (0.0-0.2); Platelet Count 276 X10*3/uL (160-400); Red Blood Count 4.73 X10*6/uL (4.20-5.50); White Blood Count 11.8 X10*3/uL (4.8-10.8)
[2024-10-24 05:18] LABS: Alanine Aminotransferase 17 U/L (0-31); Albumin Level 4.6 g/dL (3.5-5.0); Alkaline Phosphatase 89 U/L (39-117); Anion Gap 17 (12-20); Aspartate Amino Transferase 21 U/L (5-31); Blood Urea Nitrogen 22 mg/dL (9-16); Calcium 9.3 mg/dL (8.4-10.2); Carbon Dioxide 24 mmol/L (22-29); Chloride 107 mmol/L (96-108); Creatinine Clr Calc Pharmacy 72.7; Estimated Glomerular Filt Rate 55; Lipase 27 U/L (8-78); Potassium 4.6 mmol/L (3.3-5.1); Sodium 143 mmol/L (135-145); Total Protein 7.2 g/dL (6.5-8.0)
[2024-10-24] MEDS: Lactated Ringers 1,000 ML 999 ML IV (05:29)
[2024-10-24 05:31] LABS: Troponin-I High Sensitivity < 2.7 ng/L (<3.5-17.0)
--- NOTE | 2024-10-24 05:43 | PC.NURSE ---
pt biba from home, a&ox4, respirations even and unlabored. pt reports sudden onset of abdominal pain, nausea, vomiting and multiple loose stools since 12am. pt reports she was at a [employer] earlier in the day and had multiple food items, unsure if this is related. pt reports abdominal tenderness and pt abdomen noted to be distended. ems administered 4mg zofran and 500ml NS. 20g lac. pt medicated per apr at this time for nausea. assisted to bathroom.
[2024-10-24] MEDS: PHENobarb/Hyoscy/Atropine/Scop 10 ML ELIXIR PO (06:48)
[2024-10-24] MEDS: iohexoL 350 MG/ML 100 ML INFUS..BTL IV (06:51)
--- NOTE | 2024-10-24 07:22 | ED_ITS ---
HPI - Abdominal Pain General Chief Complaint: Abdominal Pain Stated Complaint: Nausea, Vomiting, Diarrhea Time Seen by Provider: 10/24/24 06:08 Source: patient and EMS Mode of arrival: EMS Limitations: no limitations History of Present Illness ED Provider: HPI narrative: 64-year-old woman presenting with nausea vomiting diarrhea, she does take Ozempic for weight loss, she did not endorse sick contacts to me or any food that maybe causing this however she did endorse that she was at a alliance party earlier and 8 various foods in triage, she reports nausea and vomiting no hematemesis or hematochezia no fevers or chills, and this started around 12:00 in the morning. She was picked up by EMS was given fluids and Zofran. She was still nauseous at the time of my evaluation. Related Data Home Medications ?Medication ?Instructions ?Recorded ?Confirmed levothyroxine 88 mcg tablet 88 mcg PO DAILY 04/03/23 0 04/17/23 (Synthroid) lisinopril 20 mg tablet 20 mg PO DAILY 04/03/2303/27 metformin 500 mg tablet 500 mg PO BID 04/03/2304/17 modafinil 200 mg tablet 300 mg PO DAILY 04/03/23 semaglutide 0.25 mg or 0.5 mg (2 0.25 mg subcut QWEEK 04/03/23 04/17/23 mg/3 mL) subcutaneous pen injector (Ozempic) bupropion HCl 150 mg 24 hr tablet, 150 mg PO QAM 04/1704/17/23 extended release (Wellbutrin XL) duloxetine 60 mg capsule,delayed 60 mg PO BID 04/17/23 04/17/23 release (Cymbalta) Previous Rx's ?Medication ?Instructions ?Recorded amoxicillin 875 mg-potassium 1 tab PO BID #14 tabs 04/17 clavulanate 125 mg tablet Allergies Allergy/AdvReac Type Severity Reaction Status Date / Time doxycycline Allergy Unknown Unknown Verified 10/24/24 04:38 simvastatin Allergy Unknown Unknown Verified 10/24/24 04:38 Review of Systems Constitutional: Reports as per [facility] Past Medical History Medical History Hypothyroid PTSD (post-traumatic stress disorder) Depression High cholesterol HTN (hypertension) Surgical History History of ankle surgery History of dilatation and curettage Social History Social History Alcohol intake: current Alcohol intake frequency: holidays/special occasions only Alcohol type: wine Patient Tobacco Use Status: Never used Tobacco Smoked in Last 30 Days: No Use of substances other than those prescribed or required for medical reasons: No Advance Directives: No Advance Directives Information Provided: Yes Do you have a plan to hurt others: No Plan Physical Exam ED Vital Signs: Vital Signs - 24 hr 10/24/24 04:33 10/24/24 06:04 10/24/24 08:36 Temperature 97.6 F 97.6 F 98.3 F Pulse Rate 97 81 88 Respiratory Rate 20 20 17 Blood Pressure 134/72 112/57 L 116/62 Pulse Oximetry 95 93 94 Oxygen Delivery Method Room Air Room Air Room Air BMI result Body Mass Index 40.6 Const Other: * Gen: ?Overall well-appearing patient * HEENT: PERRLA, EOMI, MMM, * Neck: Supple, no LAD * CV: RRR, no obvious murmurs appreciated * Resp: ?No wheezing rales rhonchi no stridor moving air well * Abd: ?Bowel sounds are present, distended, generalized tenderness, some tenderness in the left lower quadrant possibly more than other quadrants * MSK: FROM, strength 5/5 all extremities * Skin: Warm, dry, intact, no jaundice * Neuro: ?Alert and oriented x3, moving upper and lower extremities symmetrically, no obvious facial asymmetry noted Medical Decision Making Medical Decision Making MDM Narrative: Patient is presenting with abdominal pain, in the setting of being at a alliance party and eating various foods, consideration for workup as below, she was still having nausea at the time of my evaluation give we will give more fluids to address any potential ketosis, we will provide antiemetics imaging, we will re- evaluate and determine disposition 08:[address] on my re-evaluation did look suspicious for SBO but it was just confirmed that she does have a SBO and I contacted Surgical consult Differential Diagnosis Differential Diagnoses: The differential diagnosis associated with the presentation includes (SBO, volvulus, colitis, renal colic, dehydration, diverticulitis) Admission/Observation Consideration of admission/observation: Escalation of care including admission/observation considered 2022 Emergency Medicine Coding Guide from [email or web address] on 10/24/2024 All calculations should be rechecked by clinician prior to use RESULT SUMMARY: 5 Estimated Level of Service Problems: Moderate (4) Risk: High (5) Data: Extensive (5) NARRATIVE MDM: This patient's problem complexity is Moderate as patient: has a new undiagnosed problem with uncertain prognosis but that could be serious. This patient's risk is High due to: overall presentation requiring evaluation for a potentially High-risk process. This patient's data complexity is Extensive due to: -multiple tests ordered -independent interpretation of imaging or EKG INPUTS: Number and Complexity ?> 5 = 4: undiagnosed new problem, uncertain outcome (e) Risk level ?> 4 = High Tests ordered ?> 3 = >= Tests results reviewed (excluding labs) ?> 1 = 1 Prior external notes reviewed ?> 0 = 0 Assessment requiring and independent historian ?> 0 = No Independent interpretation of tests ?> 1 = Yes Discussed management/test interpretation w/external professional ?> 0 = No Consult Healthcare Provider Management of the patient was discussed with: Sustainability Manager (Surgery consult) Lab Data MDM Lab Attestation statement: I reviewed the patient's lab results. 10/24/24 04:47 10/24/24 04:47 Labs: Lab Results 10/24/24 Range/Units 04:47 WBC 11.8 H (4.8-10.8) X10*3/uL RBC 4.73 (4.20-5.50) X10*6/uL Hgb 12.6 (12.0-16.0) g/dl Hct 39.8 (37.0-47.0) % MCV 84.1 (80.0-98.0) fL MCH 26.6 L (27.0-33.0) pg MCHC 31.7 (31.0-35.0) g/dl RDW 13.8 (11.0-16.0) % Plt Count 276 D (160-400) X10*3/uL MPV 10.7 (9.4-12.3) fL Immature Gran % (Auto) 0.5 H (0.0-0.4) % Neut % (Auto) 76.7 H (45-73) % Lymph % (Auto) 14.3 L (20-40) % [place] % (Auto) 7.2 (2-11) % Eos % (Auto) 0.8 (0-4) % Baso % (Auto) 0.5 (0-2) % Lymph # (Auto) 1.7 (1.2-4.9) X10*3/uL [place] # (Auto) 0.9 (0.1-1.2) X10*3/uL Eos # (Auto) 0.1 (0.0-0.4) X10*3/uL Baso # (Auto) 0.1 (0.0-0.2) X10*3/uL Abs Immat Gran (auto) 0.06 H (0.00-0.03) X10*3/uL Absolute Neuts (auto) 9.0 H (2.0-8.3) x10*3/uL Absolute Nucleated RBC 0.000 (0.0-0.012) X10*3/uL Nucleated RBC % (auto) 0.0 (0.0-0.2) /100WBC Sodium 143 (135-145) mmol/L Potassium 4.6 (3.3-5.1) mmol/L Chloride 107 (96-108) mmol/L Carbon Dioxide 24 (22-29) mmol/L Anion Gap 17 (12-20) BUN 22 H (9-16) mg/dL Creatinine 1.01 (0.5-1.4) mg/dL Estim Creat Clear Calc 72.7 Estimated GFR 55 Random Glucose 138 H (60-115) mg/dL Calcium 9.3 (8.4-10.2) mg/dL Total Bilirubin 0.2 (0.0-1.0) mg/dL AST 21 (5-31) U/L ALT 17 (0-31) U/L Alkaline Phosphatase 89 (39-117) U/L Troponin I High Sens < 2.7 (<3.5-17.0) ng/L Total Protein 7.2 (6.5-8.0) g/dL Albumin 4.6 (3.5-5.0) g/dL Lipase 27 (8-78) U/L Independent Interpretation I performed an independent interpretation of an: EKG (89 beats per minute otherwise normal ECG without dysrhythmia, AV filemon blocks or ST-T changes to suspect underlying ACS, my independent interpretation) and CT Scan (Patient has dilated loop of bowels, on my evaluation the likely is consistent with SBo but also may be ileus we will await official report) Radiology Impression Discussion of test interpretation with radiology: I have reviewed the radiologist's reading. (1. High-grade partial small bowel obstruction with gradual small-bowel caliber tapering distally to the terminal ileum. Liquid stool throughout colon. Recommend NG tube decompression and surgical consultation. 2. Cholelithiasis without acute inflammation. 3. Appendicoliths without acute appendicit) Prescription Management I considered prescription management with: Pain Medication and Antibiotic Chronic Conditions Patient?s care impacted by: Hypertension Medications Administered Discontinued Medications Generic Name Dose Route Start Last Admin Trade Name Freq PRN Reason Stop Dose Admin Belladonna Alkaloids/Phenobarbital 10 ml 10/24/24 06:28 10/24/24 06:48 Phenobarb/Hyoscy/Atropine/Scop 10 Ml Elixir PO 10/24/24 06:29 10 ml ONCE ONE Administration Dicyclomine HCl 10 mg 10/24/24 06:28 10/24/24 07:36 Dicyclomine Hcl 10 Mg Capsule PO 10/24/24 06:29 10 mg ONCE ONE Administration Famotidine 20 mg 10/24/24 06:28 10/24/24 06:49 Famotidine/Pf 20 Mg/2 Ml Vial IVPUSH 10/24/24 06:29 20 mg ONCE ONE Administration Lactated Ringer's 1,000 mls @ 999 mls/hr 10/24/24 05:23 10/24/24 08:03 Lr IV 10/24/24 06:23 Infused .Q1H1M ONE Infusion Sodium Chloride 1,000 mls @ 999 mls/hr 10/24/24 06:30 10/24/24 08:03 Ns IV 10/24/24 07:30 Infused .Q1H1M VINNY Infusion Iohexol 100 ml 10/24/24 06:43 10/24/24 06:51 Iohexol 350 Mg/Ml 100 Ml Infus..Btl IV 10/24/24 06:44 100 ml ONCE ONE Administration Prochlorperazine Edisylate 10 mg 10/24/24 05:23 10/24/24 05:26 Prochlorperazine Edisylate 10 Mg/2 Ml Vial IVPUSH 10/24/24 05:24 10 mg ONCE ONE Administration Critical Care Time Critical Care Time Critical Care Time: Yes Total Critical Care Time: 45 Attestation: Time is exclusive of separately billable procedures. Time includes: direct patient care, patient reassessment, coordination of patient care, interpretation of data (laboratory data, pulse oximetry, arterial blood gases and chest xrays), review of patient's medical records, medical consultation and documentation of patient care. Procedures excluded from critical care time: central intravenous line placement and electrocardiography. Discharge Plan Discharge Clinical Impression: SBO (small bowel obstruction) Patient Disposition: Admitted As Inpatient Print Language: Frisian
--- NOTE | 2024-10-24 08:49 | PC.NURSE ---
Patient requesting for NG tube placement to wait until she speaks to surgery - MD aware stating okay
[2024-10-24] MEDS: Lactated Ringers 1,000 ML 150 ML IVCONT ×2 (10:40→21:28)
--- NOTE | 2024-10-24 11:15 | PC.NURSE ---
pt reports was seen by and was told does not need NG tube at this time
[2024-10-24 14:09] LABS: CDiff Gene PCR NEGATIVE (Negative)
[2024-10-24 17:30] LABS: Glucose, Whole Blood 106 mg/dL (60-115)
--- NOTE | 2024-10-24 17:41 | HE.PHANOTE ---
Addendum entered by Freedom Gibbs PharmD 10/25/24 12:18: Received med list from [place] and used to confirm the remainder of medications. Original Note: RE: [facility] Spoke to patient at bedside and she is able to name a lot of medications but does not know doses and I am unable to confirm them. She was most concerned about missing her Cymbalta dose, but verified that it is a blue and yellow capsule which matches 60mg and was confirmed during her last stay here. Will notify provider for a one time dose to cover patient for tonight.
[2024-10-24 23:35] LABS: Glucose, Whole Blood 107 mg/dL (60-115)
--- NOTE | 2024-10-25 02:17 | PM.HPGS ---
History of Present Illness History of Present Illness Date of Service: 10/24/24 Chief complaint: Abdominal Pain Narrative: Nancy Hernández is a 64 year old female who presented to the ER c/o nausea and vomiting and diarrhea loose stools - she has been taking ozempic and has lost 40 lbs but has felt her gi system slow down and has been having sulfur burps. She has been having loose stools and had a republican the day before with lots of people and food. ? thought gastroenteritis. She vomited brownish material at home. In ER refusing ng tube not feeling nauseated now. not much abdominal pain has not had any intrabdominal surgery labs here wnl and ct scan showing distended loops of bowel with some tapering near ti. denies chest pain, resp issues. Review of Systems Review of Systems: Yes all other systems are reviewed and are negative PMFSH Past Medical History Medical History Hypothyroid PTSD (post-traumatic stress disorder) Depression High cholesterol HTN (hypertension) Surgical History Surgical History History of ankle surgery History of dilatation and curettage Social History Social History Household Members: None Housing: House Do you presently have visiting nurse or other home services: No Alcohol intake: current Alcohol intake frequency: holidays/special occasions only Alcohol type: wine Patient Tobacco Use Status: Never used Tobacco Smoked in Last 30 Days: No Use of substances other than those prescribed or required for medical reasons: No Currently Displaying Signs/Symptoms of Drug Intoxication Withdrawal: No Have you been hit, kicked, punched, or otherwise hurt by someone within the past year? If so, by whom?: No Do you feel safe in your current relationship?: Yes Is there a partner from a previous relationship who is making you feel unsafe now?: No Are you made to feel afraid or neglected: No Advance Directives: No Advance Directives Information Provided: Yes Do you have a plan to hurt others: No Plan Recently lost weight without trying: No Eating poorly because of decreased appetite: Yes Nutrition Risks: Poor intake 0-25% >4 days Patient : No : No Poor oral hygiene: No Meds Allergies Allergy/AdvReac Type Severity Reaction Status Date / Time doxycycline Allergy Unknown Unknown Verified 10/24/24 04:38 simvastatin Allergy Unknown Unknown Verified 10/24/24 04:38 Active Medications: Current Medications Lactated Ringer's (Lr) 1,000 mls @ 150 mls/hr IVCONT .Q6H40M [facility] Last Admin: 10/24/24 21:28 Dose: 150 mls/hr Ondansetron HCl (Ondansetron Hcl 4 Mg/2 Ml Vial) 4 mg IVPUSH Q8H PRN PRN Reason: Nausea and Vomiting Pantoprazole Sodium (Pantoprazole Sodium 40 Mg/10 Ml Vial) 40 mg IVPUSH DAILY [facility] Last Admin: 10/24/24 10:40 Dose: 40 mg Sodium Chloride (0.9 % Sodium Chloride Flush 3 Ml Syringe) 3 ml IVFLUSH QSHIFT [facility] Last Admin: 10/24/24 22:13 Dose: Not Given Home Medications ?Medication ?Instructions ?Recorded ?Confirmed ?Last Taken ?Type levothyroxine 88 mcg tablet 88 mcg PO DAILY@0600 04/03/23 10/24/24 10/23/24 History (Synthroid) lisinopril 20 mg tablet 20 mg PO DAILY 04/03/23 04/17/23 Unknown History modafinil 200 mg tablet 400 mg PO DAILY 04/03/23 04/17/23 Unknown History semaglutide 0.25 mg or 0.5 mg (2 1 mg subcut TH 04/03/23 04/17/23 10/20/24 History mg/3 mL) subcutaneous pen injector (Ozempic) cholecalciferol (vitamin D3) 25 25 mcg PO DAILY 10/24/24 10/24/24 10/23/24 History mcg (1,000 unit) tablet duloxetine 60 mg capsule,delayed 60 mg PO BID 10/24/24 10/24/24 10/23/24 History release sprinkle Physical Exam Vital Signs: Vital Signs: Last Vital Signs Temp 97.0 F 10/24/24 23:26 Pulse 84 10/24/24 23:26 Resp 16 10/24/24 23:26 BP 131/67 10/24/24 23:26 Pulse Ox 96 10/24/24 23:26 O2 Del Method Room Air 10/24/24 23:26 BMI result Body Mass Index 39.2 Const: General: cooperative, healthy appearing and tired appearing Nutritional Appearance: obese Orientation/consciousness: patient oriented x3 Resp: Effort & Inspection: normal respiratory effort Auscultation: clear to auscultation bilaterally Cardio: Rate: regular rate Rhythm: regular rhythm GI: Other: abdomen obese diffuse mild tenderness bowel sounds present Neuro: General: patient oriented x3 Cranial nerves: Yes CN's II-XII intact bilaterally Psych: Appearance: grossly normal Affect: normal affect Results Results Labs: Short CBC 10/24/24 Range/Units 04:47 WBC 11.8 H (4.8-10.8) X10*3/uL Hgb 12.6 (12.0-16.0) g/dl Hct 39.8 (37.0-47.0) % Plt Count 276 D (160-400) X10*3/uL BMP 10/24/24 04:47 Sodium 143 Potassium 4.6 Chloride 107 Carbon Dioxide 24 BUN 22 H Creatinine 1.01 Calcium 9.3 Liver Function 10/24/24 Range/Units 04:47 Total Bilirubin 0.2 (0.0-1.0) mg/dL AST 21 (5-31) U/L ALT 17 (0-31) U/L Alkaline Phosphatase 89 (39-117) U/L Albumin 4.6 (3.5-5.0) g/dL Abdomen CT scan report/results: report reviewed and image reviewed CT scan - pelvis: report reviewed and image reviewed Additional studies: Chart - [facility] ? Diagnostics DATE TYPE STATUS REF RANGE/AUTHOR Hx 10/24/24 08:13 Hawa Kendrick 11/23/23 08:45 Arley Montoya 11/23/23 08:00 Kiya Thomson 01/19/23 15:57 Yoanna Combs 02/24/22 09:31 Jase Hurd 03/15/20 12:30 Jase Hurd Lynn M Acute 64, F0 1960 MRN#? [id number] ADM JAIR,?HO.S3??345?-1? 5ft 7in 250lb 7.122oz BSA: 2.32m? BMI: 39.2kg/m? Unknown Unknown ? ONSET 10/24/24 23:26 No Data to Display Diagnostics Reports Nancy Hernández?(c)??64??F??1960 ? Allergy/Adv: doxycycline, simvastatin [address] [address] [address] Scan Report Signed with Addenda Patient: Nancy Hernández MR#: [id number] : 1960 Acct:[id number] Age/Sex: 64 / F ADM Date: 10/24/24 Loc: HO.ED Attending Dr: Ordering Physician: Ruddy Pope DO Date of Service: 10/24/24 Procedure(s): CT abdomen pelvis w IV con Accession Number(s): [id number] cc: Physician,Unknown ; Ruddy Pope DO~ Report Number: [id number]: Total DLP = 964.00 mGy-cm ADDENDUMThis document has been electronically signed by: Hawa Kendrick MD on 10/24/2024 08:13:39 ADDENDUM: This report was discussed with Toshia Fox on Oct 24, 2024 08:17:00 EDT. This document has been electronically signed by: Yamilet Cast on 10/24/2024 08:17:25 Addendum Dictated By: Hawa Kendrick MD Addendum Signed By: <Electronically signed by Hawa Kendrick MD in [place]> 10/24/2418 Addendum Cosigned By: DD/ /19/812 TD/TT: 10/24/2403/19/816 CLINICAL HISTORY: LLQ abdominal pain Exam: CT abdomen and pelvis with IV contrast Comparison: CT - CT ABDOMEN PELVIS W IV CON - 10/24/24 06:32 EDT Findings: Unremarkable lung bases. Distended stomach, multiple dilated small bowel with gradual caliber tapering to nearly decompressed terminal ileum, liquid stool throughout large bowel, proximal colon is prominent in caliber but not dilated, distal colon is underdistended but not completely decompressed, no small or large bowel wall thickening, no pneumatosis or pneumoperitoneum, bowel wall enhancement appears preserved. Appendix is normal in caliber, appendicoliths is present, no periappendiceal inflammation. Liver, spleen, pancreas, adrenal glands, kidneys are unremarkable. Too small to characterize hypodensities of the right kidney unchanged. Cholelithiasis without acute inflammation, no bile duct dilatation. Bladder is nearly empty, limiting evaluation, no calculus. Reproductive organs are unremarkable for the age. Minimal atherosclerotic disease. No lymphadenopathy. No ascites. Degenerative changes of the lumbar spine. Right hip arthroplasty, no acute hardware complication. Impression: 1. High-grade partial small bowel obstruction with gradual small-bowel caliber tapering distally to the terminal ileum. Liquid stool throughout colon. Recommend NG tube decompression and surgical consultation. 2. Cholelithiasis without acute inflammation. 3. Appendicoliths without acute appendicitis. 4. Additional ancillary findings. This document has been electronically signed by: Hawa Kendrick MD on 10/24/2024 08:13:39 Dictated By: Hawa Kendrick MD Signed By: <Electronically signed by Hawa Kendrick MD in [place]> 10/24/24814 DD/ 2 TD/TT: 10/24/24812 Tile Conduit Layer: Assessment and Plan (1) SBO (small bowel obstruction): Status: Acute Plan 64 year old female with sbo/ileus - pt with loose stools and active bowel sounds - at this point refusing ng tube but agrees that if she throws up then she will need one. keep npo, ivf, serial abdo exams. ? gastroenteritis vs ozempic decrease transition. will trial conservative therapy. Quality Stroke Does the patient have a stroke diagnosis?: No VTE Prior VTE?: No VTE Risk Level:: Surgical - low VTE Device Contraindication: Treatment Not Indicated VTE Drug Contraindication: Treatment Not Indicated Procedures Date of Service Date of Service: 10/25/24
[2024-10-25 03:10] VITALS: BP 135/61; PULSE 78; RESP 16; TEMP 36.1; O2SAT 96
[2024-10-25] MEDS: Lactated Ringers 1,000 ML 150 ML IVCONT (04:15)
[2024-10-25 05:48] LABS: Glucose, Whole Blood 107 mg/dL (60-115)
[2024-10-25 07:17] LABS: Anion Gap 10 (12-20); Blood Urea Nitrogen 12 mg/dL (9-16); Calcium 8.5 mg/dL (8.4-10.2); Carbon Dioxide 27 mmol/L (22-29); Chloride 109 mmol/L (96-108); Creatinine Clr Calc Pharmacy 79.9; Estimated Glomerular Filt Rate > 60; Potassium 3.9 mmol/L (3.3-5.1); Sodium 142 mmol/L (135-145)
[2024-10-25 07:36] LABS: Glucose, Whole Blood 111 mg/dL (60-115)
[2024-10-25 07:38] VITALS: BP 151/69; PULSE 86; RESP 18; TEMP 36.3; O2SAT 97
--- NOTE | 2024-10-25 07:39 | PM.PNGS ---
Subjective Subjective Date of Service: 10/25/24 <Rin Arellano PA-C - Last Filed: 10/25/24 07:44> 10/25/24 <Kenny Douglas MD - Last Filed: 10/25/24 07:46> Interval history: Feels improved. denies abd pain. Has been having diarrhea. Denies further nausea or vomiting since admission. <Rin Arellano PA-C - Last Filed: 10/25/24 07:44> Physical Exam Vital Signs: Vital Signs: Last Vital Signs Temp 96.9 F 10/25/24 03:10 Pulse 78 10/25/24 03:10 Resp 16 10/25/24 03:10 BP 135/61 10/25/24 03:10 Pulse Ox 96 10/25/24 03:10 O2 Del Method Room Air 10/25/24 03:10 BMI result Body Mass Index 39.2 <Rin Arellano PA-C - Last Filed: 10/25/24 07:44> Const: General: comfortable, no acute distress and alert <Rin Arellano PA-C - Last Filed: 10/25/24 07:44> Orientation/consciousness: patient oriented x3 <Rin Arellano PA-C - Last Filed: 10/25/24 07:44> Resp: Effort & Inspection: normal respiratory effort <STANISLAV Benz Last Filed: 10/25/24 07:44> GI: Other: corpulent abdomen soft, nontender mildly distended <Rin Arellano PA-C - Last Filed: 10/25/24 07:44> Inspection: Yes normal to inspection <Rin Arellano PA-C - Last Filed: 10/25/24 07:44> Palpation (GI): no guarding <STANISLAV Benz Last Filed: 10/25/24 07:44> Skin: General skin exam: no rashes or lesions noted <STANISLAV Benz Last Filed: 10/25/24 07:44> Neuro: General: patient oriented x3 and moves all extremities <STANISLAV Benz Last Filed: 10/25/24 07:44> Objective Data Active Medications Lactated Ringer's (Lr) 1,000 mls @ 150 mls/hr IVCONT .[id number] [facility] Last Admin: 10/25/24 04:15 Dose: 150 mls/hr Documented By: RAYMOND Ondansetron HCl (Ondansetron Hcl 4 Mg/2 Ml Vial) 4 mg IVPUSH Q8H PRN PRN Reason: Nausea and Vomiting Pantoprazole Sodium (Pantoprazole Sodium 40 Mg/10 Ml Vial) 40 mg IVPUSH DAILY [facility] Last Admin: 10/24/24 10:40 Dose: 40 mg Documented By: SILVIANO Sodium Chloride (0.9 % Sodium Chloride Flush 3 Ml Syringe) 3 ml IVFLUSH QSHIFT [facility] Last Admin: 10/25/24 07:24 Dose: Not Given Documented By: MIYA Non-Admin Reason: IV Running <Rin Arellano PA-C - Last Filed: 10/25/24 07:44> Labs CBC & Chem 7: 10/24/24 04:47 10/25/24 05:31 <Rin Arellano PA-C - Last Filed: 10/25/24 07:44> Labs: Laboratory Results - last 24 hr 10/24/24 10/24/24 10/24/24 12:56 17:26 23:29 Hold Purple Top Anion Gap Estim Creat Clear Calc Estimated GFR POC Glucose 106 107 Random Glucose Calcium C. difficile Tox B Gene NEGATIVE 10/25/24 10/25/24 10/25/24 05:31 05:43 07:18 Hold Purple Top SEE NOTE Anion Gap 10 L Estim Creat Clear Calc 79.9 Estimated GFR > 60 POC Glucose 107 111 Random Glucose 107 Calcium 8.5 D C. difficile Tox B Gene <Rin Arellano PA-C - Last Filed: 10/25/24 07:44> Procedures Date of Service Date of Service: 10/25/24 <STANISLAV Benz Last Filed: 10/25/24 07:44> 10/25/24 <Kenny Douglas MD - Last Filed: 10/25/24 07:46> Progress Note: A&P Assessment and plan (1) SBO (small bowel obstruction): Status: Acute <STANISLAV Benz Last Filed: 10/25/24 07:44> Assessment and Plan: Feels better this morning Abdomen is soft and benign, not tender Looks well overall No further vomiting Does have diarrhea Clinically much improved We will put on a trial of clear liquids Clinically not obstructed currently We will re-evaluate later on today Seen and examined independently <Kenny Douglas MD - Last Filed: 10/25/24 07:46> Assessment and Plan: Admitted with concern of SBO. She does have distended stomach and dilated small bowel on imaging with tapering at TI. She is clinically appearing well and symptomatically improved. VSS. Abd exam very benign. Will advance to clear liquids and further as tolerated. Patient comfortable with plan. <Rin Arellano PA-C - Last Filed: 10/25/24 07:44> Time Spent With Patient Time: Total time managing care of this patient today ____ minutes. <Rin Arellano PA-C - Last Filed: 10/25/24 07:44> Quality Stroke Does the patient have a stroke diagnosis?: No <Rin Arellano PA-C - Last Filed: 10/25/24 07:44> VTE Prior VTE?: No <Rin Arellano PA-C - Last Filed: 10/25/24 07:44> VTE Risk Level:: Surgical - low <Rin Arellano PA-C - Last Filed: 10/25/24 07:44> VTE Device Contraindication: Treatment Not Indicated <Rin Arellano PA-C - Last Filed: 10/25/24 07:44> VTE Drug Contraindication: Treatment Not Indicated <Rin Arellano PA-C - Last Filed: 10/25/24 07:44>
[2024-10-25 11:35] LABS: Glucose, Whole Blood 138 mg/dL (60-115)
[2024-10-25 11:40] VITALS: BP 135/69; PULSE 85; RESP 18; TEMP 36.2; O2SAT 98
[2024-10-25 12:47] LABS: Appearance Urine Clear; Glucose Urine UA Negative (Negative); PH 5.5 (5.0-9.0); Specific Gravity - Urine 1.010 (1.005-1.025); UMIC TRIGGER UACC YES
[2024-10-25 12:50] LABS: UACC Culture Trigger YES
[2024-10-25 15:35] VITALS: BP 159/64; PULSE 93; RESP 18; TEMP 36.1; O2SAT 97
--- NOTE | 2024-10-25 15:38 | PM.EVENT ---
Event Note Date of Service: 10/25/24 Event Note: Seen on afternoon rounds Feels better Tolerating clear liquids Denies diarrhea Denies abdominal pain Abdomen is soft and very benign Plan to advance diet tomorrow as tolerated Time Spent With Patient Time: Total time managing care of this patient today ____ minutes.
[2024-10-25 16:04] LABS: Glucose, Whole Blood 116 mg/dL (60-115)
[2024-10-25] MEDS: Lactated Ringers 1,000 ML 60 ML IVCONT (16:45)
[2024-10-25 19:12] VITALS: BP 137/65; PULSE 88; RESP 17; TEMP 36.2; O2SAT 97
[2024-10-25 23:57] VITALS: BP 147/75; PULSE 78; RESP 17; TEMP 36.7; O2SAT 96
[2024-10-26 00:04] LABS: Glucose, Whole Blood 98 mg/dL (60-115)
[2024-10-26 04:00] VITALS: BP 125/58; PULSE 84; RESP 17; TEMP 36; O2SAT 95
[2024-10-26 05:50] LABS: Glucose, Whole Blood 113 mg/dL (60-115)
[2024-10-26 07:34] LABS: Glucose, Whole Blood 124 mg/dL (60-115)
[2024-10-26 07:37] VITALS: BP 159/79; PULSE 82; RESP 18; TEMP 36.2; O2SAT 97
--- NOTE | 2024-10-26 07:45 | P.PNGS_ITS ---
Subjective Subjective Date of Service: 10/26/24 <Rin Arellano PA-C - Last Filed: 10/26/24 07:48> 10/26/24 <Kenny Douglas MD - Last Filed: 10/26/24 08:57> Interval history: Feels overall better but c/o headache. Denies abd pain. Has been passing flatus but no further diarrhea. Tolerated clear liquids yesterday without nausea/vomiting, did have some belching. <Rin Arellano PA-C - Last Filed: 10/26/24 07:48> Physical Exam 2 Vital Signs: Vital Signs: Last Vital Signs Temp 97.1 F 10/26/24 07:37 Pulse 82 10/26/24 07:37 Resp 18 10/26/24 07:37 BP 159/79 H 10/26/24 07:37 Pulse Ox 97 10/26/24 07:37 O2 Del Method Room Air 10/26/24 07:37 BMI result Body Mass Index 39.2 <Rin Arellano PA-C - Last Filed: 10/26/24 07:48> Const: General: comfortable, no acute distress and alert <Rin Arellano PA-C - Last Filed: 10/26/24 07:48> Orientation/consciousness: patient oriented x3 <STANISLAV Benz Last Filed: 10/26/24 07:48> Resp: Effort & Inspection: normal respiratory effort <Rin Arellano PA-C - Last Filed: 10/26/24 07:48> GI: Inspection: No distended <STANISLAV Benz Last Filed: 10/26/24 07:48> Palpation (GI): Soft to palpation, nontender and no guarding <STANISLAV Benz Last Filed: 10/26/24 07:48> Skin: General skin exam: no rashes or lesions noted <STANISLAV Benz Last Filed: 10/26/24 07:48> Neuro: General: patient oriented x3 and moves all extremities <STANISLAV Benz Last Filed: 10/26/24 07:48> Objective Data Active Medications Acetaminophen (Acetaminophen 325 Mg Tablet) 650 mg PO Q6H PRN PRN Reason: Pain, Mild 1-3,fever,headache Last Admin: 10/25/24 08:35 Dose: 650 mg Documented By: MIYA Duloxetine HCl (Duloxetine Hcl 60 Mg Capsule.Dr) 60 mg PO BID [facility] Last Admin: 10/25/24 20:10 Dose: 60 mg Documented By: RYAN Lactated Ringer's (Lr) 1,000 mls @ 60 mls/hr IVCONT .[id number] [facility] Last Admin: 10/25/24 16:45 Dose: 60 mls/hr Documented By: MIYA Levothyroxine Sodium (Levothyroxine Sodium 88 Mcg Tablet) 88 mcg PO DAILY@0600 [facility] Last Admin: 10/26/24 05:42 Dose: 88 mcg Documented By: RYAN Lisinopril (Lisinopril 20 Mg Tablet) 20 mg PO DAILY [facility]; Protocol Last Admin: 10/25/24 08:35 Dose: 20 mg Documented By: MIYA Ondansetron HCl (Ondansetron Hcl 4 Mg/2 Ml Vial) 4 mg IVPUSH Q8H PRN PRN Reason: Nausea and Vomiting Oxycodone HCl (Oxycodone Hcl Immed Release 5 Mg Tablet) 5 mg PO Q4H PRN PRN Reason: Pain, Moderate(Pain Scale 4-6) Pantoprazole Sodium (Pantoprazole Sodium 40 Mg/10 Ml Vial) 40 mg IVPUSH DAILY [facility] Last Admin: 10/25/24 08:05 Dose: 40 mg Documented By: MIYA Sodium Chloride (0.9 % Sodium Chloride Flush 3 Ml Syringe) 3 ml IVFLUSH QSHIFT [facility] Last Admin: 10/26/24 07:18 Dose: Not Given Documented By: MIYA Non-Admin Reason: IV Running <Rin Arellano PA-C - Last Filed: 10/26/24 07:48> Labs CBC & Chem 7: 10/24/24 04:47 10/25/24 05:31 <Rin Arellano PA-C - Last Filed: 10/26/24 07:48> Labs: Laboratory Results - last 24 hr 10/25/24 10/25/24 10/25/24 11:30 12:33 16:01 POC Glucose 138 H 116 H Urine Color Yellow Urine Appearance Clear Urine pH 5.5 Ur Specific [place] 1.010 Urine Protein Negative Urine Glucose (UA) Negative Urine Ketones Negative Urine Blood Trace H Urine Nitrite Negative Ur Leukocyte Esterase Large (3+) H Urine RBC 0-2 Urine WBC >50 H Ur Squamous Epith Cells 3-5 Urine Bacteria Trace Hyaline Casts 0-2 10/26/24 10/26/24 10/26/24 00:00 05:45 07:16 POC Glucose 98 113 124 H Urine Color Urine Appearance Urine pH Ur Specific [place] Urine Protein Urine Glucose (UA) Urine Ketones Urine Blood Urine Nitrite Ur Leukocyte Esterase Urine RBC Urine WBC Ur Squamous Epith Cells Urine Bacteria Hyaline Casts <Rin Arellano PA-C - Last Filed: 10/26/24 07:48> Procedures Date of Service Date of Service: 10/26/24 <Rin Arellano PA-C - Last Filed: 10/26/24 07:48> 10/26/24 <Kenny Douglas MD - Last Filed: 10/26/24 08:57> Progress Note: A&P Assessment and plan (1) SBO (small bowel obstruction): Status: Acute <Rin Arellano PA-C - Last Filed: 10/26/24 07:48> Assessment and Plan: Denies abdominal pain Tolerating liquids Abdomen is soft and benign Clinically looks well Diet as tolerated Possible discharge home once tolerating diet Seen and examined independently <Kenny Douglas MD - Last Filed: 10/26/24 08:57> Assessment and Plan: Continues with GI function and tolerating clear liquids- clinically not obstructed. VSS. clinically appearing well abd exam remains very benign. She had been advanced to solid diet, if tolerating stable for dc to home later today. Patient comfortable with plan. <Rin Arellano PA-C - Last Filed: 10/26/24 07:48> Time Spent With Patient Time: Total time managing care of this patient today ____ minutes. <Rin Arellano PA-C - Last Filed: 10/26/24 07:48> Quality Stroke Does the patient have a stroke diagnosis?: No <STANISLAV Benz Last Filed: 10/26/24 07:48> VTE Prior VTE?: No <Rin Arellano PA-C - Last Filed: 10/26/24 07:48> VTE Risk Level:: Surgical - low <Rin Arellano PA-C - Last Filed: 10/26/24 07:48> VTE Device Contraindication: Treatment Not Indicated <Rin Arellano PA-C - Last Filed: 10/26/24 07:48> VTE Drug Contraindication: Treatment Not Indicated <Rin Arellano PA-C - Last Filed: 10/26/24 07:48>
[2024-10-26 11:45] LABS: Glucose, Whole Blood 147 mg/dL (60-115)
[2024-10-26 11:48] VITALS: BP 132/76; PULSE 95; RESP 18; TEMP 36.4; O2SAT 95
[2024-10-26 15:13] VITALS: BP 139/67; PULSE 97; RESP 18; TEMP 36.4; O2SAT 98
--- NOTE | 2024-10-26 15:47 | MHC.CM.PN ---
Plan is to advance diet today. DP to home once she is tolerating diet. DP resume [facility] services. Patient will arrange for transport home.
[2024-10-26] MEDS: 0.9 % Sodium Chloride Flush 3 ML SYRINGE IVFLUSH (16:02)
--- NOTE | 2024-10-26 17:21 | P.DS_ITS ---
DS: Providers Provider Date of Service: 10/26/24 Date of admission: 10/25/24 09:00 Date of discharge: 10/26/24 Primary care physician: Raven Mora MD Attending physician on admission: Mireya Harper Attending physician on discharge: Kenny Douglas DS: Diagnosis Discharge Diagnosis (1) SBO (small bowel obstruction): Status: Acute DS: Summary Hospital Course Hospital Course: HPI AT ADMISSION: Nancy Hernández is a 64 year old female who presented to the ER c/o nausea and vomiting and diarrhea loose stools - she has been taking ozempic and has lost 40 lbs but has felt her gi system slow down and has been having sulfur burps. She has been having loose stools and had a alliance party the day before with lots of people and food. ? thought gastroenteritis. She vomited brownish material at home. In ER refusing ng tube not feeling nauseated now. not much abdominal pain has not had any intrabdominal surgery labs here wnl and ct scan showing distended stomach and loops of bowel with some tapering near ti. denies chest pain, resp issues. HOSPITAL COURSE: The patient was admitted to the surgical service for further treatment of the presumed SBO. Her abdomen was overall benign and nonoperative measures were continued. NG tube was recommended but the patient refused. She was kept NPO, on IVF. She was reassessed later in the morning and had resolution of her abdominal pain and nausea. She was passing flatus. She was advanced to clear liquids. The following day she remained asymptomatic and her diet was advanced to solids. On the day of discharge, she felt well and was tolerating a solid diet without nausea or vomiting. She had good GI function. She was hemodynamically stable. Her abdomen was benign with appropriate post op tenderness and clean and intact dressings. She felt ready for discharge. She was discharged to home on 10/26/24 in stable condition. Status at Discharge Functional status at discharge: independent ambulation Overall status at discharge: patient is back to baseline Time Attestation Discharge Coordination Time (in mins): 25 Quality: Safe Use of Opioids Does Pt have an Active Cancer Diagnosis on the Problem List?: No Quality: Stroke Does the patient have a stroke diagnosis?: No Physical Exam Vital Signs: Vital Signs: Last Vital Signs Temp 97.6 F 10/26/24 15:13 Pulse 97 10/26/24 15:13 Resp 18 10/26/24 15:13 BP 139/67 10/26/24 15:13 Pulse Ox 98 10/26/24 15:13 O2 Del Method Room Air 10/26/24 15:13 BMI result Body Mass Index 39.2 Const: General: comfortable, no acute distress and alert Orientation/consciousness: patient oriented x3 GI: Inspection: No distended Palpation (GI): Soft to palpation, nontender and no guarding Neuro: General: patient oriented x3 and moves all extremities Discharge Plan Discharge Anticipated Discharge Date/Time: 10/26/24 17:27 Patient Disposition: Home, Self-Care Discharge Diagnosis: enteritis Referrals: Physician,Unknown J [Physician, Medical] - 1 Week Discharge Medications: Continued duloxetine 60 mg Capsule, Delayed Rel Sprinkle 60 mg PO BID cholecalciferol (vitamin D3) 25 mcg (1,000 unit) Tablet 25 mcg PO DAILY atenolol 25 mg Tablet 25 mg PO DAILY valacyclovir 500 mg Tablet 500 mg PO DAILY pantoprazole 40 mg Tablet,Delayed Release (Dr/Ec) 40 mg PO DAILY@0630 clotrimazole 1 % Solution 1 appl TOPICAL DAILY Rx Instructions: Toe nails pravastatin 20 mg Tablet 20 mg PO BEDTIME magnesium oxide 250 mg magnesium Tablet 250 mg PO DAILY solifenacin 5 mg Tablet 5 mg PO DAILY estradiol 10 mcg Tablet 10 mcg VAGINAL 2XW vibegron 75 mg Tablet 75 mg PO DAILY semaglutide 1 mg/dose (4 mg/3 mL) Pen Injector 1 mg SUBCUT QWEEK levothyroxine [Synthroid] 88 mcg tablet 88 mcg PO DAILY@0600 modafinil 200 mg tablet 400 mg PO DAILY Discharge Orders: Discharge Order (Routine); Ordered 10/26/24 Ordered By: Kenny Douglas Diet: Advance to usual diet Activity on Discharge: As tolerated Stand Alone Forms: Patient Portal Discharge page Print Language: Bulgarian Activity Restrictions/Additional Instructions: Follow up with your PCP. Call Your Doctor If: ? ? -Your temperature exceeds 101.5? F? ? ? -You experience excessive abdominal pain or swelling ? ? -You have an unexpected reaction to medication ? ? -You experience continued vomiting/nausea and are unable to tolerate oral intake Care Plan Goals: Return to baseline health and resume normal activities. Health Concerns: enteritis Plan of Treatment: observation, IVF hydration slow advancement of diet f/u with PCP Assessment: Improved Discharge Date/Time: 10/26/24 17:55
--- NOTE | 2024-10-26 17:28 | PM.EVENT ---
Event Note Date of Service: 10/26/24 Event Note: Patient is seen on late afternoon rounds Tolerating diet well Denies nausea or abdominal pain Passing flatus Abdomen is soft and very benign Overall clinical picture suggests more of a gastroenteritis rather than obstruction Okay for discharge I explained above to patient Time Spent With Patient Time: Total time managing care of this patient today ____ minutes.
== END 2024-10-26 17:55 | disposition home or self-care (01) | DRG 392 ==
LOC: HO.ED 10:01 → HO.EDOVER 10:18 → HO.S3 12:56
PROVIDERS: Admitting Provider Surgery; Emergency Provider Emergency Medicine; PCP Internal Medicine; Visit Provider Surgery
DX: K52.9 Noninfective gastroenteritis and colitis, unspecified (principal); E03.9 Hypothyroidism, unspecified; Z79.890 Hormone replacement therapy; Z79.899 Other long term (current) drug therapy
CPT/HCPCS: 36415; 74177; 80048; 80053; 81001; 82947; 83690; 84484; 85025; 87086; 87493; 93005; 99221; 99285; J0737; J1308; J2470; J7120; Q9967

== ENCOUNTER → 2024-10-24 04:41 | Outpatient (BNV) | payer MEDICARE, SELFPAY | PROVIDERS: Admitting Provider Surgery; Emergency Provider Emergency Medicine; Visit Provider Internal Medicine Cardiovascular Disease | DX: R11.0 Nausea (principal) | CPT/HCPCS: 93010 ==

== ENCOUNTER → 2024-10-24 06:28 | Outpatient (BNV) | payer MEDICARE, SELFPAY | PROVIDERS: Emergency Provider Emergency Medicine; Visit Provider Radiology Diagnostic Radiology | DX: K56.690 Other partial intestinal obstruction (principal) | CPT/HCPCS: 74177 ==

== ENCOUNTER → 2024-10-24 10:08 | Outpatient (BNV) | payer MEDICARE, SELFPAY | PROVIDERS: Admitting Provider Surgery; Emergency Provider Emergency Medicine; Visit Provider Surgery | DX: K56.609 Unspecified intestinal obstruction, unspecified as to partial versus complete obstruction (principal) | CPT/HCPCS: 99222; 99499 ==